=== PATIENT | female | born 1970 | race Caucasian/White ===

== ENCOUNTER 2017-07-05 21:34 | Emergency (ER) | payer SELFPAY ==
[2017-07-05] MEDS ORDERED: ACETAMINOPHEN 500 MG TAB ONE (22:48)
[2017-07-05] MEDS ORDERED: ALBUTEROL 2.5 MG/3 ML NEB SOL ONE (22:48)
[2017-07-05] MEDS ORDERED: predniSONE 20 MG TAB ONE (22:48)
[2017-07-05] MEDS ORDERED: IPRATROPIUM BROM 0.5MG/2.5ML ONE (22:48)
--- NOTE | 2017-07-06 00:28 | EDPHYS ---
Physician Documentation [facility] Name: Leyla Dutton Age: 46 yrs Sex: Female : 1970 Arrival Date: 07/05/2017 Time: 21:37 Bed 6 Private MD: ED Physician Arsenio Marquez HPI: 07/06 00:00 This 46 yrs old Female presents to ER via Ambulatory with complaints of pm1 Productive Cough - blood. 00:00 The patient or guardian reports cough, with productive sputum, yellow with some streaks pm1 of small blood today. Onset: The symptoms/episode began/occurred 4 day(s) ago. Severity of symptoms: in the emergency department the symptoms are actually worse. Modifying factors: The symptoms are alleviated by nothing, the symptoms are aggravated by nothing. The patient has experienced similar episodes in the past, several times, and the symptoms today are exactly the same, to previous bronchitis. The patient has not recently seen a physician. Patient with bilateral ear pressure and sinus congestion and pain. 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: 07/05 21:47 LMP 07/05/2017 bb Historical: - Allergies: 21:47 Bactrim (rash); bb 21:47 Codeine (High Blood Pressure); bb 21:47 Erythromycin (rash); bb 21:47 Keflex (rash); bb 21:47 Lortab (rash); bb 21:47 Morphine (High Blood Pressure); bb 21:47 PENICILLINS (Hives); bb - Home Meds: 21:47 Cymbalta Oral [Active]; lisinopril 10 mg Oral tab 1 tab once daily [Active]; omeprazole bb 40 mg Oral cpDR 1 cap once daily [Active]; Symbicort inhalation inhalation [Active]; Albuterol Inhl [Active]; - PMHx: 21:47 Anxiety; Arthritis; Asthma; Depression; Hypertension; bb - PSHx: 21:47 Knee surgery; right wrist repair; bb - Immunization history:: Adult Immunizations unknown, Flu vaccine is not up to date. - Social history:: Smoking status: Patient/guardian denies using tobacco, Patient uses alcohol, but reports only rare drinking. Patient/guardian denies using street drugs. ROS: 07/06 00:00 Constitutional: Negative for fever, chills, and weight loss, Eyes: Negative for injury, pm1 pain, redness, and discharge, ENT: Negative for injury, pain, and discharge, Neck: Negative for injury, pain, and swelling, Cardiovascular: Negative for chest pain, palpitations, and edema, Abdomen/GI: Negative for abdominal pain, nausea, vomiting, diarrhea, and constipation, Back: Negative for injury and pain. : Negative for injury, bleeding, discharge, and swelling, MS/Extremity: Negative for injury and deformity, Skin: Negative for injury, rash, and discoloration, Neuro: Negative for headache, weakness, numbness, tingling, and seizure. Respiratory: Positive for cough, shortness of breath, Negative for shortness of breath, wheezing. Exam: 00:00 Constitutional: This is a well developed, well nourished patient who is awake, alert, pm1 and in no acute distress. Eyes: Pupils equal round and reactive to light, extra-ocular motions intact. Lids and lashes normal. Conjunctiva and sclera are non-icteric and not injected. Cornea within normal limits. Periorbital areas with no swelling, redness, or edema. 00:00 ENT: Nares patent. No nasal discharge, no septal abnormalities noted. Tympanic membranes are normal and external auditory canals are clear. Oropharynx with no redness, swelling, or masses, exudates, or evidence of obstruction, uvula midline. Mucous membranes moist. Neck: Trachea midline, no thyromegaly or masses palpated, and no cervical lymphadenopathy. Supple, full range of motion without nuchal rigidity, or vertebral point tenderness. No Meningismus. Chest/axilla: Normal chest wall appearance and motion. Nontender with no deformity. No lesions are appreciated. Cardiovascular: Regular rate and rhythm with a normal S1 and S2. No gallops, murmurs, or rubs. Normal PMI, no JVD. No pulse deficits. 00:00 Abdomen/GI: Soft, non-tender, with normal bowel sounds. No distension or tympany. No guarding or rebound. No evidence of tenderness throughout. Back: No spinal tenderness. No costovertebral tenderness. Full range of motion. Skin: Warm, dry with normal turgor. Normal color with no rashes, no lesions, and no evidence of cellulitis. MS/ Extremity: Pulses equal, no cyanosis. Neurovascular intact. Full, normal range of motion. Neuro: Awake and alert, GCS 15, oriented to person, place, time, and situation. Cranial nerves II-XII grossly intact. Motor strength 5/5 in all extremities. Sensory grossly intact. Cerebellar exam normal. Normal gait. 00:00 Head/face: Sinus tenderness, that is moderate, is located over the right frontal sinus and left frontal sinus. 00:00 Respiratory: the patient does not display signs of respiratory distress, Respirations: normal, Breath sounds: wheezing: expiratory that is mild. Vital Signs: 07/05 21:47 BP 160 / 82; Pulse 136; Resp 20 S; Temp 101.5(O); Pulse Ox 95% on R/A; Weight 140.61 kg bb (R); Height 5 ft. 8 in. (172.72 cm) (R); Pain 2/10; 22:30 BP 135 / 107; Pulse 111; Resp 20; Pulse Ox 97% on R/A; lp1 23:00 BP 130 / 75; Pulse 113; Resp 20; Pulse Ox 96% on R/A; lp1 23:45 BP 131 / 72; Pulse 117; Resp 19; Pulse Ox 100% on R/A; lp1 07/06 00:30 BP 135 / 71; Pulse 118; Resp 20; Temp 100(O); Pulse Ox 97% on R/A; lp1 07/05 21:47 Body Mass Index 47.13 (140.61 kg, 172.72 cm) 07/05 21:47 chronic back pain MDM: 22:02 Patient medically screened. pm1 07/06 00:26 Data reviewed: vital signs. Data interpreted: Pulse oximetry: on room air is 97 %. pm1 Interpretation: normal. Counseling: I had a detailed discussion with the patient and/or guardian regarding: the historical points, exam findings, and any diagnostic results supporting the discharge/admit diagnosis, radiology results, the need for outpatient follow up, to return to the emergency department if symptoms worsen or persist or if there are any questions or concerns that arise at home. 07/05 22:08 Order name: Chest Pa And Lat (2 Views) XRAY; Complete Time: 15:06 pm1 Administered Medications: 07/05 22:50 Drug: Tylenol 1000 mg Route: PO; lp1 07/06 01:00 Follow up: Response: Temperature is decreased [facility] 07/05 22:50 Drug: Albuterol - atroVENT (3:1) (2.5 mg - 0.5 mg) 3 ml Route: Nebulizer; 1 07/06 01:00 Follow up: Response: No adverse reaction lp1 07/05 22:50 Drug: predniSONE 60 mg Route: PO; lp1 07/06 01:00 Follow up: Response: No adverse reaction 1 Disposition: 03:06 Co-signature as Attending Physician, Arsenio Marquez MD. Disposition: 07/06/17 00:27 Discharged to Home. Impression: Acute sinusitis, Unspecified asthma with (acute) exacerbation. - Condition is Stable. - Discharge Instructions: Asthma, Adult, Sinusitis, Adult. - Prescriptions for Levaquin 500 mg Oral Tablet - take 1 tablet by ORAL route once daily for 7 days; 7 tablet. Prednisone 20 mg Oral Tablet - take 1 tablet by ORAL route every 12 hours for 5 days; 10 tablet. - Work release form, Medication Reconciliation Form, Thank You Letter, Antibiotic Education form. - Follow up: Emergency Department; When: As needed; Reason: Worsening of condition. Follow up: Private Physician; When: 2 - 3 days; Reason: Recheck today's complaints, Continuance of care, Re-evaluation by your physician. - Problem is new. - Symptoms have improved. Signatures: Dispatcher [employer] Caro Mccain RN RN Miri Frazier RN RN 1 Jose Martinez, BANKING CONSULTANT BANKING CONSULTANT 1 Arsenio Marquez MD MD Corrections: (The following items were deleted from the chart) 00:37 07/05 22:08 Urine Dipstick-Ancillary ordered. pm1 1 07/06 00:37 07/05 22:08 Urine Test ordered. pm1 1
--- NOTE | 2017-07-06 00:28 | ER ---
Nurse's Notes [facility] Name: Leyla Dutton Age: 46 yrs Sex: Female : 1970 Arrival Date: 07/05/2017 Time: 21:37 Bed 6 Private MD: Diagnosis: Unspecified asthma with (acute) exacerbation;Acute sinusitis Presentation: 07/05 21:42 Presenting complaint: Patient states: she started coughing on Monday and in general bb is feeling really bad today she coughed so hard she threw up and it was blood tinged, pt took advil today at 1645. Transition of care: patient was not received from another setting of care. Onset of symptoms was July 01, 2017. Initial Sepsis Screen: Does the patient meet any 2 criteria? Temp <36.0*C (96.8*F)) or > 38.3*C (100.4*F). HR > 90 bpm. Does the patient have a suspected source of infection? Yes: Productive cough/pneumonia. Care prior to arrival: None. 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:47 LMP 07/05/2017 bb Historical: - Allergies: 21:47 Bactrim (rash); bb 21:47 Codeine (High Blood Pressure); bb 21:47 Erythromycin (rash); bb 21:47 Keflex (rash); bb 21:47 Lortab (rash); bb 21:47 Morphine (High Blood Pressure); bb 21:47 PENICILLINS (Hives); bb - Home Meds: 21:47 Cymbalta Oral [Active]; lisinopril 10 mg Oral tab 1 tab once daily [Active]; omeprazole bb 40 mg Oral cpDR 1 cap once daily [Active]; Symbicort inhalation inhalation [Active]; Albuterol Inhl [Active]; - PMHx: 21:47 Anxiety; Arthritis; Asthma; Depression; Hypertension; bb - PSHx: 21:47 Knee surgery; right wrist repair; bb - Immunization history:: Adult Immunizations unknown, Flu vaccine is not up to date. - Social history:: Smoking status: Patient/guardian denies using tobacco, Patient uses alcohol, but reports only rare drinking. Patient/guardian denies using street drugs. Screenin:02 Abuse screen: Denies threats or abuse. Denies injuries from another. Nutritional lp1 screening: No deficits noted. Tuberculosis screening: No symptoms or risk factors identified. Fall Risk None identified. Assessment: 22:15 General: Appears ill, Behavior is calm, cooperative, appropriate for age. Pain: lp1 Complains of pain in chest Aggravated by Coughing. Neuro: Level of Consciousness is awake, alert, obeys commands, Oriented to person, place, time, situation. Cardiovascular: Capillary refill < 3 seconds in bilateral fingers toes. Respiratory: Reports shortness of breath on exertion cough that is persistent pain with cough Airway is patent Trachea midline Respiratory effort is even, Respiratory pattern is regular, Breath sounds are diminished bilaterally. Onset: The symptoms/episode began/occurred gradually, the patient has mild shortness of breath. GI: Abdomen is obese. : No deficits noted. EENT: No deficits noted. Derm: Skin is intact, Skin is moist, Skin is flushed. Musculoskeletal: Circulation, motion, and sensation intact. 23:30 Reassessment: Patient appears in no apparent distress at this time. Patient and/or lp1 family updated on plan of care and expected duration. Pain level reassessed. Patient is alert, oriented x 3, equal unlabored respirations, skin warm/dry/pink. Patient states continued cough. 07/06 00:30 Reassessment: Patient noted to be diaphoretic, states "I think my fever is breaking" lp1 Patient states symptoms have improved. Vital Signs: 07/05 21:47 BP 160 / 82; Pulse 136; Resp 20 S; Temp 101.5(O); Pulse Ox 95% on R/A; Weight 140.61 kg bb (R); Height 5 ft. 8 in. (172.72 cm) (R); Pain 2/10; 22:30 BP 135 / 107; Pulse 111; Resp 20; Pulse Ox 97% on R/A; lp1 23:00 BP 130 / 75; Pulse 113; Resp 20; Pulse Ox 96% on R/A; lp1 23:45 BP 131 / 72; Pulse 117; Resp 19; Pulse Ox 100% on R/A; lp1 07/06 00:30 BP 135 / 71; Pulse 118; Resp 20; Temp 100(O); Pulse Ox 97% on R/A; lp1 04/18 21:47 Body Mass Index 47.13 (140.61 kg, 172.72 cm) bb 07/05 21:47 chronic back pain bb ED Course: 21:37 Patient arrived in ED. am2 21:45 Triage completed. bb 21:47 Arm band placed on right wrist. Patient placed in an exam room, on a stretcher, on bb pulse oximetry. 21:55 Jose Martinez NP is PHCP. pm1 21:55 Arsenio Marquez MD is Attending Physician. pm1 22:33 Patient moved to radiology via wheelchair. ag1 22:36 X-ray completed. Patient tolerated procedure well. ag1 22:36 Patient moved back from radiology. ag1 22:36 Chest Pa And Lat (2 Views) XRAY In Process Unspecified. EDMS 22:39 Miri Frazier RN is Primary Nurse. lp1 22:45 Patient has correct armband on for positive identification. Placed in gown. Pulse ox lp1 on. NIBP on. 07/06 00:59 No provider procedures requiring assistance completed. Patient did not have IV access lp1 during this emergency room visit. Administered Medications: 07/05 22:50 Drug: Tylenol 1000 mg Route: PO; 1 07/06 01:00 Follow up: Response: Temperature is decreased [facility] 07/05 22:50 Drug: Albuterol - atroVENT (3:1) (2.5 mg - 0.5 mg) 3 ml Route: Nebulizer; 1 07/06 01:00 Follow up: Response: No adverse reaction [facility] 07/05 22:50 Drug: predniSONE 60 mg Route: PO; [facility] 07/06 01:00 Follow up: Response: No adverse reaction [facility] Outcome: 00:27 Discharge ordered by . pm1 00:59 Discharged to home ambulatory, with significant other. lp1 00:59 Condition: good 00:59 Discharge instructions given to patient, Instructed on discharge instructions, follow up and referral plans. medication usage, Demonstrated understanding of instructions, follow-up care, medications, Prescriptions given X 2. 01:00 Patient left the ED. lp1 Signatures: Dispatcher [employer] EDMS Caro Gooden RN RN bb Miri Frazier RN RN lp1 Prema Osei ag1 Jose Martinez NP WEBFOCUS DEVELOPER pm1 Benitez, Molly am2
[2017-07-06 01:16] VITALS: BP 135/71; TEMP 100; O2SAT 97
--- NOTE | 2017-07-06 07:53 | RAD REPORT ---
EXAM DESCRIPTION: Anjali Bates (2 Views)07/05/2017 10:39 pm CLINICAL HISTORY: Cough COMPARISON: 2016 FINDINGS: The lungs appear clear of acute infiltrate. The heart is normal size IMPRESSION: No acute abnormalities displayed
== END 2017-07-06 01:00 | disposition home or self-care (01) ==
LOC: ER 21:34
DX: J45.901 Unspecified asthma with (acute) exacerbation (principal); J01.90 Acute sinusitis, unspecified; I10 Essential (primary) hypertension; F41.9 Anxiety disorder, unspecified; F32.9 Major depressive disorder, single episode, unspecified; Z88.0 Allergy status to penicillin; Z88.1 Allergy status to other antibiotic agents; Z88.3 Allergy status to other anti-infective agents; Z88.5 Allergy status to narcotic agent; Z88.8 Allergy status to other drugs, medicaments and biological substances
CPT/HCPCS: 71046; 94640; 99284; J7512

== ENCOUNTER 2018-07-14 09:10 | Emergency (ER) | payer SELFPAY ==
--- OUTSIDE RECORDS SUMMARY | 2018-07-14 09:14 | XMS REPORT | Continuity of Care Document ---
:1970 Author Organization Interface Problems Problem Status Onset Classification Date Comments Source Date Reported 28038, M17.12 Active 05/03/19 OSTEOARTHRITIS 17 [facility] LEFT KNEE City LEFT KNEE PAIN Active 03/20/19 01 [facility] 719.46 RIGHT KNEE Active 03/20/19 MH 01 [facility] Bronchitis Resolved Problem 06/09/2016 [facility] Osteoarthritis of Active Problem 06/09/2016 left knee MH knee<sup>1</sup> [facility] Acid reflux Active Problem 06/09/2016 [facility] Asthma Active Problem 06/09/2016 [facility] Hypertension Active Problem 06/09/2016 [facility] Ligament Resolved Problem 06/09/2016 right wrist MH tear<sup>2</sup> [facility] Anxiety and Active Problem 06/09/2016 depression [facility] Motion sickness Active Problem 06/09/2016 [facility] Tendonitis, Resolved Problem 06/09/2016 left knee MH patellar<sup>3</s [facility], Active UNSPECIFIED [facility] Medications Medication Details Route Status Patient Ordering Order Source Instructions Provider Date Ketorolac 10 mg=1 tab, Active Tromethamine 10 MG PO, Q8H, PRN 2017 [facility] Oral Tablet Pain Score [facility] 6-10, X 5 day, # 15 tab, 0 Refill(s), given to patient Aspirin 325 MG 325 mg=1 tab, Active Enteric Coated PO, Q12H, Take 2017 [facility] Tablet one tab at 8AM [facility] and 8PM with food, 0 Refill(s) Acetaminophen 325 1 to 2 tabs, Active MG / Oxycodone PO, Q4H, PRN as 2017 [facility] Hydrochloride 10 needed for City MG Oral Tablet pain, # 90 tab, [Percocet 10/325] 0 Refill(s), given to patient Furosemide 20 MG 20 mg, 1 tab, Inactive Oral Tablet Route: PO, Drug 2016 [facility] [Lasix] form: TAB, City ONCE, Dosing Weight 135.455, kg, Start date: 05/27/16 8:15:00 [employer], Stop date: 05/27/16 8:15:00 CSTNotes: (Same as: Lasix) May cause GI upset. Give with food or milk. BD Normal Saline 10 mL, Route: No Longer Flush IV, Drug Form: Active Jaime [facility] INJ, PRN, PRN [place] Flush, Start date: 05/26/16 15:45:00 O[employer] WORK SPECIALIST, Duration: 30 day, Stop date: 06/25/16 16:44:00 CDTNotes: (Same as: BD Posiflush) Sodium Chloride 25 mL, Route: No Longer 0.9% IV IV, Start date: Active 2016 [facility] 05/26/16 [facility] 15:45:00 O[employer]IST, Duration: 30 day, Stop date: 06/25/16 16:44:00 CDT, PRN Line Flush Acetaminophen 325 2 tab, Route: No Longer MG / Oxycodone PO, Drug Form: Active 2016 [facility] Hydrochloride 10 TAB, Dosing City MG Oral Tablet Weight 135.455, [Percocet 10/325] kg, Q4H, PRN Pain Score 7-10, Start date: 05/26/16 15:36:00 O[employer]IST, Duration: 30 day, Stop date: 06/25/16 15:35:00 CDT Dilaudid 4 mg, 1 tab, Inactive Route: PO, Drug 2016 [facility] form: TAB, Q4H, [facility] Dosing Weight 135.455, kg, PRN Pain Score 7-10, Start date: 05/26/16 13:48:00 O[employer]IST, Duration: 30 day, Stop date: 06/25/16 13:47:00 CDTNotes: (Same as: Dilaudid) Dilaudid 2 mg, 1 tab, Inactive Route: PO, Drug 2016 [facility] form: TAB, Q4H, [facility] Dosing Weight 135.455, kg, PRN Pain Score 1-5, Start date: 05/26/16 13:16:00 O[employer]IST, Stop date: 06/25/16 13:15:00 CDTNotes: (Same as: Dilaudid) Sodium Chloride 500 mL, 500 Inactive 0.154 MEQ/ML ml/hr, Infuse 2017 [facility] Injectable Over: 1 hr, [facility] Solution Route: IV, 500, Drug form: INJ, ONCE, Priority: STAT, Dosing Weight 135.455 kg, Start date: 05/26/16 12:54:00 O[employer]IST, Duration: 1 doses or times, Stop date: 05/26/16 12:54:00 O[employer] WORK SPECIALIST Tylenol 500 mg, 1 tab, No Longer Route: PO, Drug Active [address] [place] [address] form: TAB, Q6H, [facility] Dosing Weight 135.455, kg, Start date: 05/26/16 12:00:00 O[employer]IST, Duration: 30 day, Stop date: 06/25/16 6:00:00 CDT Advil 600 mg, 1 tab, No Longer Route: PO, Drug Active [address] [place] [address] form: TAB, Q8H, [facility] Dosing Weight 135.455, kg, Start date: 05/26/16 9:30:00 O[employer]IST, Duration: 30 day, Stop date: 06/25/16 8:00:00 CDT cyclobenzaprine 10 mg, 1 tab, No Longer Route: PO, Drug Active [address] [place] [address] form: TAB, BID, [facility] Dosing Weight 135.455, kg, Start date: 05/26/16 9:00:00 O[employer] WORK [employer]IST, Duration: 30 day, Stop date: 06/24/16 17:00:00 CDTNotes: (Same As: Flexeril) Vancomycin 2,000 mg, 500 Inactive mL, Route: [address] [place] [address] IVPB, Drug [facility] form: SOLN, Q24H, Dosing Weight 135, kg, Time Critical Medication, Start date: 05/26/16 6:00:00 [employer]IST, Duration: 1 doses or times, Stop date: 05/26/16 6:00:00 [employer]IST, Pharmacy to adjust dose for renal functionNotes: TIME CRITICAL MEDICATION Same as: Vancocin Infusion rate 2001 mg: infuse over 2.5 hours albuterol 2.49 mg, 3 mL, No Longer Route: NEB, Active [address] [place] [address] Drug form: City SOLN, RQID, PRN Shortness of breath, Start date: 05/25/16 22:04:00 O[employer]IST, Duration: 30 day, Stop date: 06/24/16 22:03:00 CDTNotes: SEE RT DOCUMENTATION (Same as: Proventil) Protonix 40 mg, 1 tab, No Longer Route: PO, Drug Active 2016 [facility] form: ECTAB, City Before Dinner, Start date: 05/25/16 21:16:00 O[employer]IST, Duration: 30 day, Stop date: 06/24/16 16:30:00 CDTNotes: Tablet should not be chewed or crushed. (Same as: Protonix) Omeprazole 40 mg, Route: Inactive PO, Drug form: 2016 [facility], Bedtime, [facility] Dosing Weight 135.455, kg, Start date: 05/25/16 21:00:00 O[employer] WORK [employer]IST, Duration: 30 day, Stop date: 06/23/16 21:00:00 CDT montelukast 10 mg, 1 tab, No Longer Route: PO, Drug Active 2016 [facility] form: TAB, [facility] Bedtime, Dosing Weight 135.455, kg, Start date: 05/25/16 21:00:00 O[employer] WORK [employer]IST, Duration: 30 day, Stop date: 06/23/16 21:00:00 CDTNotes: (Same as:Singulair) duloxetine 60 mg, 2 cap, No Longer Route: PO, Drug Active 2016 [facility] form: DRC, [facility] Bedtime, Dosing Weight 135.455, kg, Start date: 05/25/16 21:00:00 O[employer]IST, Duration: 30 day, Stop date: 06/23/16 21:00:00 CDTNotes: (Same as: Cymbalta) (Do Not Crush) 200 ACTUAT 180 microgram, Inactive Albuterol 0.09 2 puff, Route: 2016 [facility] MG/ACTUAT Metered INHALATION, [facility] Dose Inhaler Drug Form: [ProAir HFA] AERO/A, Dosing Weight 135.455, kg, QID, PRN Wheezing, Start date: 05/25/16 17:12:00 O[employer]IST, Duration: 30 day, Stop date: 06/24/16 17:11:00 CDT Docusate Sodium 100 mg, 1 cap, No Longer 100 MG Oral Route: PO, Drug Active 2016 [facility] Capsule [Colace] form: CAP, BID, [facility] Dosing Weight 135, kg, Start date: 05/25/16 17:00:00 O[employer]IST, Duration: 30 day, Stop date: 06/24/16 9:00:00 CDT Aspirin 325 mg, 1 tab, No Longer Route: PO, Drug Active 2016 [facility] form: ECTAB, City Q12H, Dosing Weight 135, kg, For patients with risk of bleeding, Start date: 05/25/16 15:00:00 O[employer]IST, Duration: 30 day, Stop date: 06/24/16 9:00:00 CDTNotes: (Do Not Crush) Do not crush or chew. Ketorolac 15 mg, 0.5 mL, No Longer Route: IV, Drug Active 2016 [facility] form: INJ, Q6H, [facility] Dosing Weight 135, kg, Start date: 05/25/16 12:00:00 O[employer] WORK [employer]IST, Duration: 4 doses or times, Stop date: 05/26/16 6:00:00 CSTNotes: (Same as:Toradol) IV bolus must be given >15 seconds. Give IM administration slowly and deeply into the muscle. Not for use > 4 days MEDICATION WASTE Product Size: 30 mg Product Wasted: ___ mg Vancomycin 2,000 mg, Inactive Route: [id number] Drug form: INJ, City Q24H, Dosing Weight 135, kg, Time Critical Medication, Start date: 05/25/16 11:00:00 O[employer] WORK [employer]IST, Duration: 1 doses or times, Stop date: 05/25/16 11:00:00 O[employer] WORK [employer]IST, Pharmacy to adjust dose for renal function Dilaudid 1 mg, 0.5 mL, No Longer Route: IM, Drug Active 2016 [facility] form: INJ, Q4H, [facility] Dosing Weight 135, kg, PRN Pain Score 7-10, Start date: 05/25/16 10:49:00 O[employer] WORK [employer]IST, Duration: 30 day, Stop date: 06/24/16 10:48:00 CDTNotes: Same as Dilaudid Phenergan 6.25 mg, 0.25 No Longer mL, Route: Active 2016 [facility] IVPB, Q6H, [facility] Dosing Weight 135, kg, PRN Nausea & Vomiting, Start date: 05/25/16 10:45:00 O[employer]IST, Duration: 30 day, Stop date: 06/24/16 10:44:00 CDTNotes: Do not give IV push. (Same as: Phenergan) Benadryl 25 mg, 1 cap, No Longer Route: PO, Drug Active 2016 [facility] form: CAP, TID, [facility] Dosing Weight 135, kg, PRN Itching, Start date: 05/25/16 10:45:00 O[employer] WORK [employer]IST, Duration: 30 day, Stop date: 06/24/16 10:44:00 CDTNotes: (Same as: Benadryl) Zofran 4 mg, 2 mL, No Longer Route: IV, Drug Active 2016 [facility] form: INJ, Q8H, [facility] Dosing Weight 135, kg, PRN Nausea, Start date: 05/25/16 10:45:00 O[employer] WORK SPECIALIST, Duration: 30 day, Stop date: 06/24/16 10:44:00 CDTNotes: (Same as: Zofran) MEDICATION WASTE Product Size: 4 mg Product Wasted: ___ mg Acetaminophen 325 2 tab, Route: No Longer MG / Oxycodone PO, Drug Form: Active 2016 [facility] Hydrochloride 10 TAB, Dosing [place] MG Oral Tablet Weight 135, kg, [Percocet 10/325] Q4H, PRN Pain Score 7-10, Start date: 05/25/16 10:45:00 O[employer]IST, Duration: 30 day, Stop date: 06/24/16 10:44:00 CDT Maalox Advanced 30 mL, Route: No Longer Regular Strength PO, Drug Form: Active 2016 [facility] SUSP SUSP, Dosing [facility] Weight 135, kg, QID, PRN Heartburn, Start date: 05/25/16 10:45:00 O[employer]IST, Duration: 30 day, Stop date: 06/24/16 10:44:00 CDT Ambien 5 mg, 1 tab, No Longer Route: PO, Drug Active 2016 [facility] form: TAB, City Bedtime, Dosing Weight 135, kg, PRN Insomnia, Start date: 05/25/16 10:45:00 O[employer]IST, Duration: 30 day, Stop date: 06/24/16 10:44:00 CDTNotes: (Same As: Ambien) D5NS 1,000 mL 1,000 mL, Rate: No Longer 100 ml/hr, Active 2016 [facility] Infuse over: 10 City hr, Route: IV, Dosing Weight 135 kg, Total Volume: 1,000, Start date: 05/25/16 10:45:00 O[employer]IST, Duration: 30 day, Stop date: 06/24/16 10:44:00 CDT acetaminophen Route: IV, Drug Inactive 05/25/ MH (ANES) form: INJ, 2016 [facility] , date: 05/25/16 10:40:00 O[employer]IST dexamethasone Route: IV, Drug Inactive 05/25/ MH (ANES) form: INJ, 2016 [facility] ONCE, date: 05/25/16 10:34:00 O[employer] WORK [employer]IST morphine Sulfate Route: IV, Drug Inactive 05/25/ MH (ANES) form: SOLN 2016 [facility] , date: 05/25/16 10:29:00 O[employer]IST tranexamic acid Route: IV, Drug Inactive 05/25/ MH (ANES) form: INJ, 2016 [facility] ONCE, date: 05/25/16 9:49:00 O[employer]IST phenylephrine Route: IV, Drug Inactive 05/25/ MH (ANES) form: INJ, 2016 [facility] ONCE, date: 05/25/16 9:39:00 O[employer] WORK SPECIALIST ePHEDrine (ANES) Route: IV, Drug Inactive 05/25/ MH form: INJ, 2016 [facility] , date: 05/25/16 9:39:00 O[employer] WORK SPECIALIST bupivacaine (ANES) Route: IV, Drug Inactive 05/25/ MH Form: INJ, 2016 [facility] , date: 05/25/16 9:34:00 O[employer] SPECIALIST morphine Sulfate Route: IV, Drug Inactive 05/25/ MH (ANES) form: N 2016 [facility] date: 05/25/16 9:34:00 O[employer] WORK [employer]IST Ondansetron 4 mg, 2 mL, No Longer Route: IVP, Active 2016 [facility] Drug form: INJ, , Dosing Weight 135, kg, PRN Nausea & Vomiting, Start date: 05/25/16 9:21:00 CSTNotes: (Same as: Zofran) MEDICATION WASTE Product Size: 4 mg Product Wasted: ___ mg Flumazenil 0.2 mg, 2 mL, No Longer Route: IVP, Active 2016 [facility] Drug form: INJ, City PRN, Dosing Weight 135, kg, PRN Benzodiazepine Reversal, Initial dose, Start date: 05/25/16 9:21:00 O[employer] WORK [employer]IST, Duration: 30 day, Stop date: 06/24/16 10:20:00 CDTNotes: (Same as: Romazicon) Hydromorphone 0.2 mg, 0.1 mL, No Longer Route: IVP, Active 2016 [facility] Drug form: INJ, City Q5Min, Dosing Weight 135, kg, PRN Pain Score 7-10, Start date: 05/25/16 9:21:00 O[employer] WORK [employer]IST, Duration: 4 doses or times, Stop date: Limited # of timesNotes: Same as Dilaudid Naloxone 0.4 mg, 1 mL, No Longer Route: IVP, 2016 [facility] Drug form: INJ, City Q2MIN, Dosing Weight 135, kg, PRN Narcotic Reversal, Start date: 05/25/16 9:21:00 O[employer] WORK SPECIALIST, Duration: 8 doses or times, Stop date: Limited # of timesNotes: Same as Narcan midazolam (ANES) Route: IV, Drug Inactive form: SOLN, 2016 [facility] date: 05/25/16 9:19:00 O[employer] WORK SPECIALIST ondansetron (ANES) Route: IV, Drug Inactive form: INJ, 2016 [facility] , [facility] date: 05/25/16 9:19:00 OLD[employer]ULT [employer] WORK SPECIALIST fentaNYL (ANES) Route: IV, Drug Inactive form: INJ, 2016 [facility] , Stop [facility] date: 05/25/16 9:19:00 O[employer] WORK [employer]IST Naloxone 0.1 mg, 0.25 No Longer mL, Route: IVP, Active 2016 [facility] Drug form: INJ, City Q2MIN, Dosing Weight 135, kg, PRN Narcotic Reversal, Start date: 05/25/16 9:17:00 O[employer] WORK SPECIALIST, Duration: 8 doses or times, Stop date: Limited # of timesNotes: Same as Narcan propofol (ANES) Route: IV, Drug Inactive 05/25/ MH (ANES) form: INJ, 2016 [facility] Start date: [facility] 05/25/16 9:05:00 O[employer] WORK SPECIALIST, Stop date: 05/25/16 10:05:00 O[employer] WORK SPECIALIST vancomycin (ANES) Route: IV, Drug Inactive (ANES) form: INJ, 2016 [facility] Start date: [facility] 05/25/16 8:43:00 O[employer] WORK SPECIALIST, Stop date: 05/25/16 9:43:00 OLD[employer]ULT [employer] WORK SPECIALIST LR 1000 mL INJ Route: IV, Inactive (ANES) Total Volume: 2016 [facility] 1,000, Start City date: 05/25/16 8:37:00 O[employer] WORK SPECIALIST, Stop date: 05/25/16 9:37:00 OLD[employer]ULT [employer] WORK SPECIALIST 72 HR Scopolamine 1 patch, Route: Inactive 0.0139 MG/HR TOP, Drug Form: 2016 [facility] Transdermal Patch ERFILM, Dosing [facility] Weight 135, kg, PRE OP, Start date: 05/25/16 8:00:00 O[employer] WORK SPECIALIST, Duration: 30 day, Stop date: 06/24/16 8:59:00 CDT Cyklokapron + 1,000 mg, 10 Inactive sodium chloride mL, Route: 2016 [facility] 0.9% [facility] date: 05/25/16 0:00:00 OLD[employer]ULT [employer] WORK SPECIALIST, Duration: 2 doses or timesNotes: (Same As: Cyklokapron) Ofirmev 1,000 mg, 100 Inactive mL, Route: IV, 2016 [facility]: 05/25/16 0:00:00 OLD[employer]ULT [employer] WORK SPECIALIST, Duration: 20 hr, Stop date: 05/25/16 19:59:00 CSTNotes: Infuse over 15 minutes Do not exceed 4gm/day of acetaminophen MEDICATION WASTE Product Size: 1000 mg Product Wasted: ___ mg Reglan 10 mg, 1 tab, Inactive Route: PO, Drug 2016 [facility] form: TAB, [facility], Start date: 05/25/16 0:00:00 OLD[employer] WORK SPECIALIST, Duration: 20 hr, Stop date: 05/25/16 19:59:00 CSTNotes: (Same as: Reglan) Take 30 min before meals Cleocin Phosphate 900 mg, 6 mL, No Longer + sodium chloride Route: IVPB, Active 2016 [facility] 0.9% INJ 50 mL ONCALL, Start [facility] date: 05/25/16 0:00:00 O[employer] WORK SPECIALIST, Duration: 20 hr, Stop date: 05/25/16 19:59:00 CSTNotes: (Same As: Cleocin) famotidine 20 mg, 1 tab, Inactive Route: PO, Drug 2016 [facility] form: TAB, Alicja ONCALL, Start date: 05/25/16 0:00:00 O[employer] WORK SPECIALIST, Duration: 20 hr, Stop date: 05/25/16 19:59:00 CSTNotes: (Same as: Pepcid) vancomycin + 2,000 mg, Inactive sodium chloride Route: IVPB, 2016 [facility] 0.9% 500 mL INJ [facility] (for IV set) 500 date: 05/25/16 mL 0:00:00 O[employer]ULT [employer] WORK SPECIALIST, Duration: 20 hr, Stop date: 05/25/16 19:59:00 CSTNotes: TIME CRITICAL MEDICATION (Same As: Vancocin) Infusion rate 2001 mg: infuse over 2.5 hours MEDICATION WASTE Product Size: 1000 mg Product Wasted: ___ mg 200 ACTUAT 2 puff, Active Albuterol 0.09 INHALATION, 2016 [facility] MG/ACTUAT Metered QID, PRN as [facility] Dose Inhaler needed for [ProAir HFA] wheezing, 0 Refill(s) Hydrochlorothiazid 25 mg=1 tab, Active e 25 MG Oral PO, Daily, PRN 2016 [facility] Tablet Hypertension, 0 [facility] Refill(s) lisinopril 10 mg 10 mg=1 tab, Active oral tablet PO, Bedtime, 0 2016 [facility] Refill(s) [facility] DULoxetine 60 mg 60 mg=1 cap, Active oral delayed PO, Bedtime, 0 2016 [facility] release capsule Refill(s) [facility] montelukast 10 mg 10 mg=1 tab, Active oral tablet PO, Bedtime, 0 2016 [facility] Refill(s) [facility] cyclobenzaprine 10 10 mg=1 tab, Active mg oral tablet PO, BID, 0 2016 [facility] Refill(s) [facility] tramadol 50 mg=1 tab, Active hydrochloride 50 PO, Q4H, PRN 2016 [facility] MG Oral Tablet Pain Score [facility] 6-10, 0 Refill(s) omeprazole 40 mg 40 mg=1 cap, Active oral delayed PO, Bedtime, 0 2016 [facility] release capsule Refill(s) [facility] indomethacin 75 mg 75 mg=1 cap, No Longer oral capsule, PO, Bedtime, 0 Active 2016 [facility] extended release Refill(s) [facility] Allergies, Adverse Reactions, Alerts Substance Category Reaction Severity Reaction Status Date Comments Source type Reported Bactrim Assertion Drug Active [facility] codeine Assertion Drug Active [facility] Latex Assertion Drug Active [facility] Lortab Assertion Drug Active [facility] morphine Assertion Drug Active [facility] penicillins Assertion Drug Active [facility] Tape Assertion Drug Active [facility] Immunizations Immunization Date Given Site Status Last Updated Comments Source Results Order Name Results Value Reference Date Interpretation Comments Source Range Knee 1-2 Knee 1-2 CLINICAL HISTORY: Pain 06/06 - Views - [facility] unilateral unilateral AGE: 45 years [facility] DX DX GENDER: Female Read by: Andreas Monterroso MD Dictated Date/time: 06/06/16 12:58 Electronically Signed by: Andreas Monterroso MD 06/06/16 13:01 FINAL REPORT TECHNIQUE: Left knee radiographs, 2 views. COMPARISON: Left knee radiographs 03/25/2016 FINDINGS: Postoperative changes from left total knee arthroplasty are noted. There is no evidence of fracture or malalignment. Expected soft tissue swelling is seen about the knee. Surgical cha are seen in the anterior midline soft tissues. An orthopedic bracket is seen on the anterior tibia. IMPRESSION: Postoperative changes from left total knee arthroplasty without evidence of complication. HEMATOLOGY Monocytes # 1.2 K/CMM 0.0 - 0.8 05/27 [facility] HEMATOLOGY Segs-Bands # 8.5 K/CMM 1.5 - 8.1 05/27 [facility] HEMATOLOGY Basophils # 0.1 K/CMM 0.0 - 0.2 05/27 [facility] HEMATOLOGY Eosinophils 0.9 K/CMM 0.0 - 0.5 05/27 [facility] HEMATOLOGY Lymphocytes 2.1 K/CMM 1.0 - 5.5 05/27 [facility] HEMATOLOGY Monocytes 9.5 % 2.0 - 12.0 [facility] HEMATOLOGY Segs 66.5 % 45.0 - 05/27 MH 75.0 [facility] HEMATOLOGY Eosinophils 6.6 % 0.0 - 4.0 05/27 [facility] HEMATOLOGY Lymphocytes 16.6 % 20.0 - 05/27 MH 40.0 [facility] HEMATOLOGY Basophils 0.8 % 0.0 - 1.0 05/27 [facility] HEMATOLOGY RBC 3.75 M/CMM 4.20 - 05/27 MH 5.40 /2016 [facility] HEMATOLOGY WBC 12.8 K/CMM 3.7 - 10.4 05/27 [facility] HEMATOLOGY Hgb 10.0 g/dL 12.0 - 05/27 MH 16.0 [facility] HEMATOLOGY Hct 31.0 % 36.0 - 05/27 MH 48.0 [facility] MPV 8.0 fL 7.4 - 10.4 05/27 [facility] HEMATOLOGY MCHC 32.4 g/dL 32.0 - 05/27 36.0 [facility] MCH 26.7 pg 27.0 - 05/27 MH 31.0 [facility] HEMATOLOGY Platelet 311 K/CMM 133 - 450 05/27 [facility] HEMATOLOGY RDW 15.1 % 11.5 - 05/27 14. [facility] HEMATOLOGY MCV 82.5 fL 80.0 - 05/27 98.0 [facility] ELECTROLYTE Potassium 4.3 meq/L 3.5 - 5.1 05/26 S Lvl /2016 [facility] ELECTROLYTE Sodium Lvl 143 meq/L 135 - 145 05/26 [facility] ELECTROLYTE Calcium Lvl 8.2 mg/dL 8.5 - 10.5 05/26 S [facility] ELECTROLYTE Chloride Lvl 111 meq/L 95 - 109 05/26 [facility] ELECTROLYTE eGFR 105 05/26 Result Comment: The eGFR is calculated using the CKD-EPI formula. In most young, healthy individuals the eGFR will be > 90 mL/min/1.73m2. The eGFR declines with age. An eGFR of 60-89 may be normal in mL/min/1. some populations, particularly the elderly, for whom the CKD-EPI formula has not been extensively validated. Use of the eGFR is not recommended in the following populations: [address] Individuals with unstable creatinine concentrations, including patients and those with serious co-morbid conditions. Patients with extremes in muscle mass or diet. The data above are obtained from the National Kidney Disease Education Program (NKDEP) which additionally recommends that when the eGFR is used in patients with extremes of body mass index for purposes of drug dosing, the eGFR should be multiplied by the estimated BMI. ELECTROLYTE AGAP 13.3 meq/L 10.0 - 05/26 MH S 20.0 [facility] ELECTROLYTE BUN 9 mg/dL 7 - 22 05/26 [facility] ELECTROLYTE Creatinine 0.70 mg/dL 0.50 - 05/26 S Lvl 1.40 [facility] ELECTROLYTE CO2 23 meq/L 24 - 32 05/26 [facility] ELECTROLYTE Glucose Lvl 127 mg/dL 70 - 99 05/26 [facility] HEMATOLOGY Segs 79.5 % 45.0 - 05/26 MH 75.0 [facility] HEMATOLOGY Lymphocytes 12.3 % 20.0 - 05/26 MH 40.0 [facility] HEMATOLOGY Monocytes 7.2 % 2.0 - 12.0 05/26 [facility] HEMATOLOGY Segs-Bands # 13.0 K/CMM 1.5 - 8.1 05/26 [facility] HEMATOLOGY Eosinophils 0.8 % 0.0 - 4.0 05/26 [facility] HEMATOLOGY Basophils 0.2 % 0.0 - 1.0 05/26 [facility] HEMATOLOGY Lymphocytes 2.0 K/CMM 1.0 - 5.5 05/26 [facility] HEMATOLOGY Monocytes # 1.2 K/CMM 0.0 - 0.8 05/26 [facility] HEMATOLOGY Eosinophils 0.1 K/CMM 0.0 - 0.5 05/26 [facility] HEMATOLOGY WBC 16.4 K/CMM 3.7 - 10.4 05/26 [facility] HEMATOLOGY Hgb 9.6 g/dL 12.0 - 05/26 MH 16.0 [facility] HEMATOLOGY Hct 30.1 % 36.0 - 05/26 MH 48.0 [facility] HEMATOLOGY RBC 3.57 M/CMM 4.20 - 05/26 MH 5. [facility] HEMATOLOGY MPV 8.7 fL 7.4 - 10.4 05/26 [facility] HEMATOLOGY MCV 84.4 fL 80.0 - 05/26 MH 98.0 [facility] HEMATOLOGY MCH 26.9 pg 27.0 - 05/26 MH 31.0 [facility] HEMATOLOGY MCHC 31.9 g/dL 32.0 - 05/26 MH 36.0 [facility] HEMATOLOGY RDW 15.1 % 11.5 - 05/26 MH 14.5 [facility] HEMATOLOGY Platelet 320 K/CMM 133 - 450 05/26 [facility] CHEM PANEL Creatinine 0.98 mg/dL 0.50 - 05/25 Lvl 1.40 [facility] CHEM PANEL eGFR 70 05/25 Result Comment: The eGFR is calculated using the CKD-EPI formula. In most young, healthy individuals the eGFR will be >90 mL/ min/1.73m2. The eGFR declines with age. An eGFR of 60-89 may be normal in mL/min/1.7 some populations, particularly the elderly, for whom the CKD-EPI formula has not been extensively validated. Use of the eGFR is not recommended in the following populations: [address] Individuals with unstable creatinine concentrations, including patients and those with serious co-morbid conditions. Patients with extremes in muscle mass or diet. The data above are obtained from the National Kidney Disease Education Program (NKDEP) which additionally recommends that when the eGFR is used in patients with extremes of body mass index for purposes of drug dosing, the eGFR should be multiplied by the estimated BMI. HEMATOLOGY Sed Rate 15 mm/h 0 - 20 05/25 [facility] BACTERIAL - MRSA by PCR Negative 05/17 [facility] (05/17/16 10:00 AM) [facility] CHEM PANEL Glucose Lvl 135 mg/dL 70 - 99 05/17 [facility] ELECTROLYTE Sodium Lvl 138 meq/L 135 - 145 05/17 S [facility] ELECTROLYTE Potassium 3.5 meq/L 3.5 - 5.1 05/17 S Lv [facility] HEMATOLOGY Hct 35.6 % 36.0 - 05/17 MH 48.0 [facility] HEMATOLOGY Hgb 11.6 g/dL 12.0 - 05/17 MH 16.0 [facility] Knee 3 Knee 3 views EXAMINATION: Left knee series 03/25 - views DX DX /2016 - [facility] HISTORY: Left knee pain; left knee arthritis Read by: Kelvin Grace MD Dictated Date/time: 03/25/16 11:25 Electronically Signed by: Kelvin Grace MD 03/25/16 11:27 FINAL REPORT FINDINGS: 3 views of the left knee are performed and compared to 05/25/2012. There is severe lateral and mild to moderate patellofemoral compartment, bicompartmental knee osteoarthritis characterized by asymmetric joint space narrowing, subchondral sclerosis, and osteophytosis i ncluding [id number] articulation within the lateral compartment. There is genu valgus alignment. There is a small knee effusion. There is a metallic orthopedic bracket redemonstrated along the anterior proximal tibia. There is no acute fracture. IMPRESSION: 1. Severe lateral and mild to moderate patellofemoral compartment, bicompartmental left knee osteoarthritis with left genu valgus alignment and a small left knee effusion. Knee 4+ Knee 4+ EXAM: Knee 4+ views unilateral 02/03 [facility] views views /2013 [facility] unilateral HISTORY: 719.46 Pain in Joint Involving Lower Leg [facility] DX DX COMPARISON: None Read by: Chato Simmons MD Dictated Date/time: 02/03/14 13:36 Electronically Signed by: Chato Simmons MD 02/03/14 13:38 FINAL REPORT Four views of the right knee. Alignment is normal. No fracture is seen. There is no joint effusion. There is mild tibiofemoral joint space narrowing with trace marginal osteophyte formation at the medial tibiofemoral compartment. No osteochondral defect is appreciated. IMPRESSION: Mild degenerative change. Vital Signs Vital Sign Value Date Comments Source Respitory Rate 18 05/27/2016 [facility] Systolic (mm Hg) 137 05/27/2016 [facility] Diastolic (mm Hg) 79 05/27/2016 [facility] Heart Rate 112 05/27/2016 [facility] Respitory Rate 20 05/27/2016 [facility] Systolic (mm Hg) 144 05/27/2016 [facility] Diastolic (mm Hg) 81 05/27/2016 [facility] Heart Rate 115 05/27/2016 [facility] Systolic (mm Hg) 128 05/27/2016 [facility] Diastolic (mm Hg) 74 05/27/2016 [facility] Heart Rate 100 05/27/2016 [facility] Respitory Rate 16 05/27/2016 [facility] Temperature Oral (F) 98 F 05/27/2016 [facility] Temperature Oral (F) 98 F 05/27/2016 [facility] Temperature Oral (F) 97.6 F 05/27/2016 [facility] Height 30.48 cm 05/26/2016 [facility] Weight 135.455 05/25/2016 [facility] BMI Calculated 44.1 05/25/2016 [facility] Height 175.26 cm 05/25/2016 [facility] BMI Calculated 45.25 05/17/2016 [facility] Height 172.72 cm 05/17/2016 [facility] Weight 135 05/17/2016 [facility] Encounters Location Location Encounter Encounter Reason Attending ADM DC Status Source Details Type Number For Provider Date Date Visit Outpatient [id number] LEFT MOSES 05/25 Active [facility] Outpatient [id number] Moses 02/03 02/04 [facility] /2013 [facility] [place] Outpatient [id number] Moses 03/25 03/26 [facility] /2016 [facility] Inpatient [id number] Moses 05/25 05/27 [facility] Outpatient [id number] Moses 06/06 06/07 [facility] Procedures Procedure Code Date Perfomer Comments Source Procedure on [id number] ulnar tendon [facility] wrist tear [facility] joint<sup>1</sup> Repair of lateral [id number] [facility] ligament [facility] knee joint Repair of [id number] [facility]
--- OUTSIDE RECORDS SUMMARY | 2018-07-14 09:14 | XMS REPORT | Summary of Care ---
:1970 Author Organization [facility] Address [address] [place] [id number]- Encounter HQ Barbara_leonie(FIN) [id number] Date(s): 05/25/16 - 05/27/[address] [address]- Discharge Disposition: Home or Self Care Attending Physician: Ed Patiño MD Admitting Physician: Ed Patiño MD Referring Physician: Ed Patiño MD Vital Signs Most recent to oldest 1 2 3 [Reference Range]: Height 30.48 cm 175.26 cm 172.72 cm (05/26/16 12:00 PM) (05/25/16 12:15 PM) (05/17/16 8:58 AM) Temperature Oral [96.4-99.1 98 DegF 98 DegF 97.6 DegF DegF] (05/27/16 4:03 AM) (05/27/16 12:00 AM) (05/26/16 8:00 PM) Blood Pressure [90-140/60-90 137/79 mmHg 144/81 mmHg 128/74 mmHg mmHg] (05/27/16 9:53 AM) *HI* (05/27/16 4:03 AM) (05/27/16 7:15 AM) Respiratory Rate [14-20 BRMIN] 18 BRMIN 20 BRMIN 16 BRMIN (05/27/16 9:53 AM) (05/27/16 7:15 AM) (05/27/16 4:03 AM) Peripheral Pulse Rate [60-100 112 bpm 115 bpm 100 bpm bpm] *HI* *HI* (05/27/16 4:03 AM) (05/27/16 9:53 AM) (05/27/16 7:15 AM) Weight 135.455 kg 135 kg (05/25/16 12:15 PM) (05/17/16 8:58 AM) Body Mass Index 44.1 m2 45.25 m2 (05/25/16 12:15 PM) (05/17/16 8:58 AM) Problem List Condition Effective Dates Status Health Status Informant Bronchitis(Confirmed) Resolved Osteoarthritis of knee(Confirmed)1 Active Acid reflux(Confirmed) Active Asthma(Confirmed) Active Hypertension(Confirmed) Active Ligament tear(Confirmed)2 Resolved Anxiety and depression(Confirmed) Active Motion sickness(Confirmed) Active Tendonitis, patellar(Confirmed)3 Resolved 1left [id number] knee Allergies, Adverse Reactions, Alerts Substance Reaction Severity Status Bactrim Active codeine Active Latex Active Lortab Active morphine Active penicillins Active Tape Active Medications acetaminophen (ANES) Route: IV, Drug form: INJ, ONCE, Stop date: 05/25/16 10:40:00 [employer] Start Date: 05/25/16 Stop Date: 05/25/16 Status: Completedalbuterol 2.49 mg, 3 mL, Route: NEB, Drug form: SOLN, RQID, PRN Shortness of breath, Start date: 05/25/16 22:04:00 [employer], Duration: 30 day, Stop date: 06/24/16 22:03: 00 CDT Notes: SEE RT DOCUMENTATION (Same as: Jessie) Start Date: 05/25/16 Stop Date: 05/27/16 Status: DiscontinuedAmbien 5 mg, 1 tab, Route: PO, Drug form: TAB, Bedtime, Dosing Weight 135, kg, PRN Insomnia, Start date: 05/25/16 10:45:00 [employer], Duration: 30 day, Stop date: 10:44:00 CDT Notes: (Same As: Ambien) Start Date: 05/25/16 Stop Date: 05/27/16 Status: DiscontinuedANES flumazenil 0.2 mg, 2 mL, Route: IVP, Drug form: INJ, PRN, Dosing Weight 135, kg, PRN Benzodiazepine Reversal, Initial dose, Start date: 05/25/16 9:21:00 [employer], Duration: 30 day, Stop date: 06/24/16 10:20:00 CDT Notes: (Same as: Romazicon) Start Date: 05/25/16 Stop Date: 05/26/16 Status: DiscontinuedANES HYDROmorphone 0.2 mg, 0.1 mL, Route: IVP, Drug form: INJ, Q5Min, Dosing Weight 135, kg, PRN Pain Score 7-10, Startdate: 05/25/16 9:21:00 [employer], Duration: 4 doses or times, Stop date: Limited # of times Notes: Same as Dilaudid Start Date: 05/25/16 Stop Date: 05/26/16 Status: DiscontinuedANES naloxone 0.4 mg, 1 mL, Route: IVP, Drug form: INJ, Q2MIN, Dosing Weight 135, kg, PRN Narcotic Reversal, Startdate: 05/25/16 9:21:00 [employer], Duration: 8 doses or times, Stop date: Limited # of times Notes: Same as Narcan Start Date: 05/25/16 Stop Date: 05/26/16 Status: DiscontinuedANES ondansetron 4 mg, 2 mL, Route: IVP, Drug form: INJ, ONCE, Dosing Weight 135, kg, PRN Nausea & Vomiting, Start date: 05/25/16 9:21:00 [employer] Notes: (Same as: Mel) MEDICATION WASTE Product Size: 4 mgProduct Wasted: ___ mg Start Date: 05/25/16 Stop Date: 05/26/16 Status: Discontinuedaspirin 325 mg, 1 tab, Route: PO, Drug form: ECTAB, Q12H, Dosing Weight 135, kg, For patients with risk of bleeding, Start date: 05/25/16 15:00:00 [employer], Duration: 30 day, Stop date: 06/24/16 9:00:00 CDT Notes: (Do Not Crush) Do not crush or chew. Start Date: 05/25/16 Stop Date: 05/27/16 Status: Discontinuedaspirin 325 mg tablet, enteric coated 325 mg=1 tab, PO, Q12H, Take one tab at 8AM and 8PM with food, 0 Refill(s) Start Date: 05/27/16 Status: OrderedBD Normal Saline Flush 10 mL, Route: IV, Drug Form: INJ, PRN, PRN Line Flush, Start date: 05/26/16 15: 45:00 [employer], Duration: 30 day, Stop date: 06/25/16 16:44:00 CDT Notes: (Same as: BD Posiflush) Start Date: 05/26/16 Stop Date: 05/27/16 Status: DiscontinuedBD Normal Saline Flush 5 mL, Route: IV, Drug Form: INJ, PRN, PRN Line Flush, Start date: 05/26/16 15:45 :00 [employer], Duration: 30 day, Stop date: 06/25/16 16:44:00 CDT Notes: (Same as: BD Posiflush) Start Date: 05/26/16 Stop Date: 05/27/16 Status: DiscontinuedBenadryl 25 mg, 1 cap, Route: PO, Drug form: CAP, TID, Dosing Weight 135, kg, PRN Itching , Start date: 05/25/16 10:45:00 [employer], Duration: 30 day, Stop date: 06/24/16 10:44 :00 CDT Notes: (Same as: Benadryl) Start Date: 05/25/16 Stop Date: 05/27/16 Status: Discontinuedbupivacaine (ANES) Route: IV, Drug Form: INJ, ONCE, Stop date: 05/25/16 9:34:00 [employer] Start Date: 05/25/16 Stop Date: 05/25/16 Status: CompletedCleocin Phosphate + sodium chloride 0.9% INJ 50 mL 900 mg, 6 mL, Route: IVPB, ONCALL, Start date: 05/25/16 0:00:00 [employer], Duration: 20 hr, Stop date: 05/25/16 19:59:00 [employer] Notes: (Same As: Cleocin) Start Date: 05/25/16 Stop Date: 05/24/16 Status: DeletedColace 100 mg oral capsule 100 mg, 1 cap, Route: PO, Drug form: CAP, BID, Dosing Weight 135, kg, Start date : 05/25/16 17:00:00 [employer], Duration: 30 day, Stop date: 06/24/16 9:00:00 CDT Start Date: 05/25/16 Stop Date: 05/27/16 Status: Discontinuedcyclobenzaprine 10 mg, 1 tab, Route: PO, Drug form: TAB, BID, Dosing Weight 135.455, kg, Start date: 05/26/16 9:00:00 [employer], Duration: 30 day, Stop date: 06/24/16 17:00:00 CDT Notes: (Same As: Flexeril) Start Date: 05/26/16 Stop Date: 05/27/16 Status: Discontinuedcyclobenzaprine 10 mg oral tablet 10 mg=1 tab, PO, BID, 0 Refill(s) Start Date: 05/17/16 Status: OrderedCyklokapron + sodium chloride 0.9% INJ 100 mL 1,000 mg, 10 mL, Route: IVPB, ONCALL, Start date: 05/25/16 0:00:00 [employer], Duration : 2 doses or times Notes: (Same As: Cyklokapron) Start Date: 05/25/16 Stop Date: 05/25/16 Status: [id number] 1,000 mL 1,000 mL, Rate: 100 ml/hr, Infuse over: 10 hr, Route: IV, Dosing Weight 135 kg, Total Volume: 1,000,Start date: 05/25/16 10:45:00 [employer], Duration: 30 day, Stop date: 06/24/16 10:44:00 CDT Start Date: 05/25/16 Stop Date: 05/27/16 Status: Discontinueddexamethasone (ANES) Route: IV, Drug form: INJ, ONCE, Stop date: 05/25/16 10:34:00 [employer] Start Date: 05/25/16 Stop Date: 05/25/16 Status: CompletedDilaudid 4 mg, 1 tab, Route: PO, Drug form: TAB, Q4H, Dosing Weight 135.455, kg, PRN Pain Score 7-10, Start date: 05/26/16 13:48:00 [employer], Duration: 30 day, Stop date : 06/25/16 13:47:00 CDT Notes: (Same as: Dilaudid) Start Date: 05/26/16 Stop Date: 05/26/16 Status: DeletedDilaudid 2 mg, 1 tab, Route: PO, Drug form: TAB, Q4H, Dosing Weight 135.455, kg, PRN Pain Score 1-5, Start date: 05/26/16 13:16:00 [employer], Stop date: 06/25/16 13:15:00 CDT Notes: (Same as: Dilaudid) Start Date: 05/26/16 Stop Date: 05/26/16 Status: Voided With ResultsDilaudid 1 mg, 0.5 mL, Route: IM, Drug form: INJ, Q4H, Dosing Weight 135, kg, PRN Pain Score 7-10, Start date: 05/25/16 10:49:00 [employer], Duration: 30 day, Stop date: 10/03 10:48:00 CDT Notes: Same as Dilaudid Start Date: 05/25/16 Stop Date: 05/26/16 Status: DiscontinuedDULoxetine 60 mg, 2 cap, Route: PO, Drug form: DRC, Bedtime, Dosing Weight 135.455, kg, Start date: 05/25/16 21:00:00 [employer], Duration: 30 day, Stop date: 06/23/16 21:00: 00 CDT Notes: (Same as: Cymbalta) (Do Not Crush) Start Date: 05/25/16 Stop Date: 05/27/16 Status: DiscontinuedDULoxetine 60 mg oral delayed release capsule 60 mg=1 cap, PO, Bedtime, 0 Refill(s) Start Date: 05/17/16 Status: OrderedePHEDrine (ANES) Route: IV, Drug form: INJ, ONCE, Stop date: 05/25/16 9:39:00 [employer] Start Date: 05/25/16 Stop Date: 05/25/16 Status: Completedfamotidine 20 mg, 1 tab, Route: PO, Drug form: TAB, ONCALL, Start date: 05/25/16 0:00:00 [employer], Duration: 20 hr, Stop date: 05/25/16 19:59:00 [employer] Notes: (Same as: Pepcid) Start Date: 05/25/16 Stop Date: 05/25/16 Status: CompletedfentaNYL (ANES) Route: IV, Drug form: INJ, ONCE, Stop date: 05/25/16 9:19:00 [employer] Start Date: 05/25/16 Stop Date: 05/25/16 Status: Completedhydrochlorothiazide 25 mg oral tablet 25 mg=1 tab, PO, Daily, PRN Hypertension, 0 Refill(s) Start Date: 05/17/16 Status: Orderedibuprofen 600 mg, 1 tab, Route: PO, Drug form: TAB, Q8H, Dosing Weight 135.455, kg, Start date: 05/26/16 9:30:00 [employer], Duration: 30 day, Stop date: 06/25/16 8:00:00 CDT Start Date: 05/26/16 Stop Date: 05/27/16 Status: Discontinuedindomethacin 75 mg oral capsule, extended release 75 mg=1 cap, PO, Bedtime, 0 Refill(s) Start Date: 05/17/16 Stop Date: 05/26/16 Status: DiscontinuedketOROLAC 15 mg, 0.5 mL, Route: IV, Drug form: INJ, Q6H, Dosing Weight 135, kg, Start date : 05/25/16 12:00:00 [employer], Duration: 4 doses or times, Stop date: 05/26/16 6:00: 00 [employer] Notes: (Same as:Toradol) IV bolus must be given >15 seconds. Give IM administration slowly and deeply into the muscle.Not for use > 4 days MEDICATION WASTE Product Size: 30 mgProduct Wasted: ___ mg Start Date: 05/25/16 Stop Date: 05/26/16 Status: CompletedketOROLAC 10 mg oral tablet 10 mg=1 tab, PO, Q8H, PRN Pain Score 6-10, X 5 day, # 15 tab, 0 Refill(s), given to patient Start Date: 05/27/16 Stop Date: 06/01/16 Status: OrderedLasix 20 mg oral tablet 20 mg, 1 tab, Route: PO, Drug form: TAB, ONCE, Dosing Weight 135.455, kg, Start date: 05/27/16 8:15:00 [employer], Stop date: 05/27/16 8:15:00 [employer] Notes: (Same as: Lasix) May cause GI upset. Give with food or milk. Start Date: 05/27/16 Stop Date: 05/27/16 Status: Completedlisinopril 10 mg oral tablet 10 mg=1 tab, PO, Bedtime, 0 Refill(s) Start Date: 05/17/16 Status: OrderedLR 1000 mL INJ (ANES) Route: IV, Total Volume: 1,000, Start date: 05/25/16 8:37:00 [employer], Stop date: 11/03 9:37:00 [employer] Start Date: 05/25/16 Stop Date: 05/25/16 Status: CompletedMaalox Advanced Regular Strength SUSP 30 mL, Route: PO, Drug Form: SUSP, Dosing Weight 135, kg, QID, PRN Heartburn, Start date: 05/25/16 10:45:00 [employer], Duration: 30 day, Stop date: 06/24/16 10:44: 00 CDT Start Date: 05/25/16 Stop Date: 05/27/16 Status: Discontinuedmidazolam (ANES) Route: IV, Drug form: SOLN, ONCE, Stop date: 05/25/16 9:19:00 [employer] Start Date: 05/25/16 Stop Date: 05/25/16 Status: Completedmontelukast 10 mg, 1 tab, Route: PO, Drug form: TAB, Bedtime, Dosing Weight 135.455, kg, Start date: 05/25/16 21:00:00 [employer], Duration: 30 day, Stop date: 06/23/16 21:00: 00 CDT Notes: (Same as:Terri) Start Date: 05/25/16 Stop Date: 05/27/16 Status: Discontinuedmontelukast 10 mg oral tablet 10 mg=1 tab, PO, Bedtime, 0 Refill(s) Start Date: 05/17/16 Status: Orderedmorphine Sulfate (ANES) Route: IV, Drug form: SOLN, ONCE, Stop date: 05/25/16 10:29:00 [employer] Start Date: 05/25/16 Stop Date: 05/25/16 Status: Completedmorphine Sulfate (ANES) Route: IV, Drug form: SOLN, ONCE, Stop date: 05/25/16 9:34:00 [employer] Start Date: 05/25/16 Stop Date: 05/25/16 Status: Completedmorphine Sulfate (ANES) Route: Intratracheal, Drug form: SOLN, ONCE, Stop date: 05/25/16 10:29:00 [employer] Start Date: 05/25/16 Stop Date: 05/25/16 Status: Completednaloxone 0.1 mg, 0.25 mL, Route: IVP, Drug form: INJ, Q2MIN, Dosing Weight 135, kg, PRN Narcotic Reversal, Start date: 05/25/16 9:17:00 [employer], Duration: 8 doses or times , Stop date: Limited # of times Notes: Same as Narcan Start Date: 05/25/16 Stop Date: 05/27/16 Status: DiscontinuedNS (Bolus) IV 500 mL, 500 ml/hr, Infuse Over: 1 hr, Route: IV, 500, Drug form: INJ, ONCE, Priority: STAT, Dosing Weight 135.455 kg, Start date: 05/26/16 12:54:00 [employer], Duration: 1 doses or times, Stop date: 05/26/16 12:54:00 [employer] Start Date: 05/26/16 Stop Date: 05/26/16 Status: CompletedOfirmev 1,000 mg, 100 mL, Route: IV, Drug form: INJ, ONCALL, Start date: 05/25/16 0:00: 00 [employer], Duration: 20 hr, Stop date: 05/25/16 19:59:00 [employer] Notes: Infuse over 15 minutesDo not exceed 4gm/day of acetaminophen MEDICATION WASTE ProductSize: 1000 mgProduct Wasted: ___ mg Start Date: 05/25/16 Stop Date: 05/25/16 Status: Discontinuedomeprazole 40 mg, Route: PO, Drug form: DRC, Bedtime, Dosing Weight 135.455, kg, Start date : 05/25/16 21:00:00 [employer], Duration: 30 day, Stop date: 06/23/16 21:00:00 CDT Start Date: 05/25/16 Stop Date: 05/25/16 Status: Deletedomeprazole 40 mg oral delayed release capsule 40 mg=1 cap, PO, Bedtime, 0 Refill(s) Start Date: 05/17/16 Status: Orderedondansetron (ANES) Route: IV, Drug form: INJ, ONCE, Stop date: 05/25/16 9:19:00 [employer] Start Date: 05/25/16 Stop Date: 05/25/16 Status: CompletedPercocet 10/325 oral tablet 2 tab, Route: PO, Drug Form: TAB, Dosing Weight 135.455, kg, Q4H, PRN Pain Score 7-10, Start date: 05/26/16 15:36:00 [employer], Duration: 30 day, Stop date: 11/03 15:35:00 CDT Start Date: 05/26/16 Stop Date: 05/27/16 Status: DiscontinuedPercocet 10/325 oral tablet 1 tab, Route: PO, Drug Form: TAB, Dosing Weight 135.455, kg, Q4H, PRN Pain Score 4-6, Start date: 05/26/16 15:36:00 [employer], Duration: 30 day, Stop date: 06/25 15:35:00 CDT Start Date: 05/26/16 Stop Date: 05/27/16 Status: DiscontinuedPercocet 10/325 oral tablet 2 tab, Route: PO, Drug Form: TAB, Dosing Weight 135, kg, Q4H, PRN Pain Score 7- 10, Start date: 05/25/16 10:45:00 [employer], Duration: 30 day, Stop date: 06/24/16 10: 44:00 CDT Start Date: 05/25/16 Stop Date: 05/26/16 Status: DiscontinuedPercocet 10/325 oral tablet 1 tab, Route: PO, Drug Form: TAB, Dosing Weight 135, kg, Q4H, PRN Pain Score 4-6 , Start date: 05/25/16 10:45:00 [employer], Duration: 30 day, Stop date: 06/24/16 10:44 :00 CDT Start Date: 05/25/16 Stop Date: 05/26/16 Status: DiscontinuedPercocet 10/325 oral tablet 1 to 2 tabs, PO, Q4H, PRN as needed for pain, # 90 tab, 0 Refill(s), given to patient Start Date: 05/27/16 Stop Date: 06/10/16 Status: OrderedPhenergan + sodium chloride 0.9% INJ 50 mL 6.25 mg, 0.25 mL, Route: IVPB, Q6H, Dosing Weight 135, kg, PRN Nausea & Vomiting, Start date: 05/25/16 10:45:00 [employer], Duration: 30 day, Stop date: 10:44:00 CDT Notes: Do not give IV push. (Same as: Phenergan) Start Date: 05/25/16 Stop Date: 05/27/16 Status: Discontinuedphenylephrine (ANES) Route: IV, Drug form: INJ, ONCE, Stop date: 05/25/16 9:39:00 [employer] Start Date: 05/25/16 Stop Date: 05/25/16 Status: CompletedProAir HFA 90 mcg/inh inhalation aerosol with adapter 2 puff, INHALATION, QID, PRN as needed for wheezing, 0 Refill(s) Start Date: 05/17/16 Status: OrderedProAir HFA 90 mcg/inh inhalation aerosol with adapter 180 microgram, 2 puff, Route: INHALATION, Drug Form: AERO/A, Dosing Weight 135.455, kg, QID, PRN Wheezing, Start date: 05/25/16 17:12:00 [employer], Duration: 30 day, Stop date: 06/24/16 17:11:00 CDT Start Date: 05/25/16 Stop Date: 05/25/16 Status: Discontinuedpropofol (ANES) (ANES) Route: IV, Drug form: INJ, Start date: 05/25/16 9:05:00 [employer], Stop date: 10:05:00 [employer]IVER Start Date: 05/25/16 Stop Date: 05/25/16 Status: CompletedProtonix 40 mg, 1 tab, Route: PO, Drug form: ECTAB, Before Dinner, Start date: 05/25/16 21:16:00 [employer], Duration: 30 day, Stop date: 06/24/16 16:30:00 CDT Notes: Tablet should not be chewed or crushed.(Same as: Protonix) Start Date: 05/25/16 Stop Date: 05/27/16 Status: DiscontinuedReglan 10 mg, 1 tab, Route: PO, Drug form: TAB, ONCALL, Start date: 05/25/16 0:00:00 [employer], Duration: 20 hr, Stop date: 05/25/16 19:59:00 [employer]IVER Notes: (Same as: Reglan) Take 30 min before meals Start Date: 05/25/16 Stop Date: 05/25/16 Status: Completedscopolamine 1.5 mg transdermal film 1 patch, Route: TOP, Drug Form: ERFILM, Dosing Weight 135, kg, PRE OP, Start date: 05/25/16 8:00:00 [employer], Duration: 30 day, Stop date: 06/24/16 8:59:00 CDT Start Date: 05/25/16 Stop Date: 05/25/16 Status: CompletedSodium Chloride 0.9% IV 25 mL, Route: IV, Start date: 05/26/16 15:45:00 [employer], Duration: 30 day, Stop date : 06/25/16 16:44:00 CDT, PRN Line Flush Start Date: 05/26/16 Stop Date: 05/27/16 Status: Discontinuedtramadol 50 mg oral tablet 50 mg=1 tab, PO, Q4H, PRN Pain Score 6-10, 0 Refill(s) Start Date: 05/17/16 Status: Orderedtranexamic acid (ANES) Route: IV, Drug form: INJ, ONCE, Stop date: 05/25/16 9:49:00 [employer] Start Date: 05/25/16 Stop Date: 05/25/16 Status: CompletedTylenol 500 mg, 1 tab, Route: PO, Drug form: TAB, Q6H, Dosing Weight 135.455, kg, Start date: 05/26/16 12:00:00 [employer], Duration: 30 day, Stop date: 06/25/16 6:00:00 CDT Start Date: 05/26/16 Stop Date: 05/27/16 Status: Discontinuedvancomycin (ANES) (ANES) Route: IV, Drug form: INJ, Start date: 05/25/16 8:43:00 [employer], Stop date: 9:43:00 [employer]IVER Start Date: 05/25/16 Stop Date: 05/25/16 Status: Completedvancomycin (SCIP) 2,000 mg, Route: IVPB, Drug form: INJ, Q24H, Dosing Weight 135, kg, Time Critical Medication, Start date: 05/25/16 11:00:00 [employer]IVER, Duration: 1 doses or times, Stop date: 05/25/16 11:00:00 [employer]IVER, Pharmacy to adjust dose for renal function Start Date: 05/25/16 Stop Date: 05/25/16 Status: Deletedvancomycin (SCIP) 2,000 mg, 500 mL, Route: IVPB, Drug form: SOLN, Q24H, Dosing Weight 135, kg, Time Critical Medication, Start date: 05/26/16 6:00:00 [employer]IVER, Duration: 1 doses or times, Stop date: 05/26/16 6:00:00 [employer] DRIVER, Pharmacy to adjust dose for renal function Notes: TIME CRITICAL MEDICATIONSame as: Vancocin Infusion rate< 1000 mg: infuse over 1 [id number] - 1500 mg: infuse over 1.5 [id number] - 2000 mg: infuse over 2 hours> 2001 mg: infuse over 2.5 hours Start Date: 05/26/16 Stop Date: 05/26/16 Status: Completedvancomycin + sodium chloride 0.9% 500 mL INJ (for IV set) 500 mL 2,000 mg, Route: IVPB, ONCALL, Start date: 05/25/16 0:00:00 [employer]IVER, Duration: 20 hr , Stop date: 05/25/16 19:59:00 [employer] DRIVER Notes: TIME CRITICAL MEDICATION(Same As: Vancocin)Infusion rate< 1000 mg: infuse over 1 [id number] - 1500 mg: infuse over 1.5 [id number] - 2000 mg: infuse over 2 hours> 2001 mg: infuse over 2.5 hours MEDICATION WASTE Product Size: 1000 mgProduct Wasted: ___ mg Start Date: 05/25/16 Stop Date: 05/25/16 Status: DiscontinuedZofran 4 mg, 2 mL, Route: IV, Drug form: INJ, Q8H, Dosing Weight 135, kg, PRN Nausea, Start date: 05/25/16 10:45:00 [employer], Duration: 30 day, Stop date: 06/24/16 10:44: 00 CDT Notes: (Same as: Zofran) MEDICATION WASTE Product Size: 4 mgProduct Wasted: ___ mg Start Date: 05/25/16 Stop Date: 05/27/16 Status: Discontinued Results ELECTROLYTES Most recent to oldest [Reference Range]: 1 2 3 Sodium Lvl [135-145 mEq/L] 143 mEq/L 138 mEq/L (05/26/16 4:28 AM) (05/17/16 10:00 AM) Potassium Lvl [3.5-5.1 mEq/L] 4.3 mEq/L 3.5 mEq/L (05/26/16 4:28 AM) (05/17/16 10:00 AM) Chloride Lvl [95-109 mEq/L] 111 mEq/L *HI* (05/26/16 4:28 AM) CO2 [24-32 mEq/L] 23 mEq/L *LOW* (05/26/16 4:28 AM) AGAP [10.0-20.0 mEq/L] 13.3 mEq/L (05/26/16 4:28 AM) CHEM PANEL Most recent to oldest [Reference Range]: 1 2 3 Creatinine Lvl [0.50-1.40 mg/dL] 0.70 mg/dL 0.98 mg/dL (05/26/16 4:28 AM) (05/25/16 3:22 PM) eGFR 105 mL/min/1.73m2 1 70 mL/min/1.73m2 2 *NA* *NA* (05/26/16 4:28 AM) (05/25/16 3:22 PM) BUN [7-22 mg/dL] 9 mg/dL (05/26/16 4:28 AM) Glucose Lvl [70-99 mg/dL] 127 mg/dL 135 mg/dL *HI* *HI* (05/26/16 4:28 AM) (05/17/16 10:00 AM) Calcium Lvl [8.5-10.5 mg/dL] 8.2 mg/dL *LOW* (05/26/16 4:28 AM) 1Result Comment: The eGFR is calculated using the CKD-EPI formula. In most young , healthy individualsthe eGFR will be >90 mL/min/1.73m2. The eGFR declines with age. An eGFR of 60-89 may be normal in some populations, particularly the elderly, for whom the CKD-EPI formula has not been extensively validated. Use of the eGFR is not recommended in the following populations: Individuals with unstable creatinine concentrations, including patients and those with serious co-morbid conditions. Patients with extremes in muscle mass or diet. The data above are obtained from the National Kid[employer] Disease Education Program ( [employer]) which additionally recommends that when the eGFR is used in patients with extremes of body mass index for purposesof drug dosing, the eGFR should be multiplied by the estimated BMI.2Result Comment: The eGFR is calculated using the CKD-EPI formula. In most young, healthy individualsthe eGFR will be >90 mL/ min/1.73m2. The eGFR declines with age. An eGFR of 60-89 may be normal in some populations, particularly the elderly, for whom the CKD-EPI formula has not been extensively validated. Use of the eGFR is not recommended in the following populations: Individuals with unstable creatinine concentrations, including patients and those with serious co-morbid conditions. Patients with extremes in muscle mass or diet. The data above are obtained from the National Kid[employer] Disease Education Program ( [employer]) which additionally recommends that when the eGFR is used in patients with extremes of body mass index for purposesof drug dosing, the eGFR should be multiplied by the estimated BMI.HEMATOLOGY Most recent to oldest 1 2 3 [Reference Range]: WBC [3.7-10.4 K/CMM] 12.8 K/CMM 16.4 K/CMM *HI* *HI* (05/27/16 8:25 AM) (05/26/16 4:28 AM) RBC [4.20-5.40 M/CMM] 3.75 M/CMM 3.57 M/CMM *LOW* *LOW* (05/27/16 8:25 AM) (05/26/16 4:28 AM) Hgb [12.0-16.0 g/dL] 10.0 g/dL 9.6 g/dL 11.6 g/dL *LOW* *LOW* *LOW* (05/27/16 8:25 AM) (05/26/16 4:28 AM) (05/17/16 10:00 AM) Hct [36.0-48.0 %] 31.0 % 30.1 % 35.6 % *LOW* *LOW* *LOW* (05/27/16 8:25 AM) (05/26/16 4:28 AM) (05/17/16 10:00 AM) MCV [80.0-98.0 fL] 82.5 fL 84.4 fL (05/27/16 8:25 AM) (05/26/16 4:28 AM) MCH [27.0-31.0 pg] 26.7 pg 26.9 pg *LOW* *LOW* (05/27/16 8:25 AM) (05/26/16 4:28 AM) MCHC [32.0-36.0 g/dL] 32.4 g/dL 31.9 g/dL (05/27/16 8:25 AM) *LOW* (05/26/16 4:28 AM) RDW [11.5-14.5 %] 15.1 % 15.1 % *HI* *HI* (05/27/16 8:25 AM) (05/26/16 4:28 AM) Platelet [133-450 K/CMM] 311 K/CMM 320 K/CMM (05/27/16 8:25 AM) (05/26/16 4:28 AM) MPV [7.4-10.4 fL] 8.0 fL 8.7 fL (05/27/16 8:25 AM) (05/26/16 4:28 AM) Segs [45.0-75.0 %] 66.5 % 79.5 % (05/27/16 8:25 AM) *HI* (05/26/16 4:28 AM) Lymphocytes [20.0-40.0 %] 16.6 % 12.3 % *LOW* *LOW* (05/27/16 8:25 AM) (05/26/16 4:28 AM) Monocytes [2.0-12.0 %] 9.5 % 7.2 % (05/27/16 8:25 AM) (05/26/16 4:28 AM) Eosinophils [0.0-4.0 %] 6.6 % 0.8 % *HI* (05/26/16 4:28 AM) (05/27/16 8:25 AM) Basophils [0.0-1.0 %] 0.8 % 0.2 % (05/27/16 8:25 AM) (05/26/16 4:28 AM) Segs-Bands # [1.5-8.1 K/CMM] 8.5 K/CMM 13.0 K/CMM *HI* *HI* (05/27/16 8:25 AM) (05/26/16 4:28 AM) Lymphocytes # [1.0-5.5 K/CMM] 2.1 K/CMM 2.0 K/CMM (05/27/16 8:25 AM) (05/26/16 4:28 AM) Monocytes # [0.0-0.8 K/CMM] 1.2 K/CMM 1.2 K/CMM *HI* *HI* (05/27/16 8:25 AM) (05/26/16 4:28 AM) Eosinophils # [0.0-0.5 K/CMM] 0.9 K/CMM 0.1 K/CMM *HI* (05/26/16 4:28 AM) (05/27/16 8:25 AM) Basophils # [0.0-0.2 K/CMM] 0.1 K/CMM (05/27/16 8:25 AM) Sed Rate [0-20 mm/hr] 15 mm/hr (05/25/16 3:22 PM) BACTERIAL - SEROLOGY Most recent to oldest [Reference Range]: 1 2 3 MRSA by PCR Negative (05/17/16 10:00 AM) Immunizations No data available for this section Procedures Procedure Date Related Diagnosis Body Site Procedure on wrist joint1 Repair of lateral collateral ligament of knee joint Repair of patellar tendon 1ulnar tendon tear Social History Social History Type Response Alcohol Current Smoking Status Never smoker; Exposure to Tobacco Smoke None; Cigarette Smoking Last 365 Days No; Reg Smoking Cessation Counseling No Assessment and Plan No data available for this section
--- OUTSIDE RECORDS SUMMARY | 2018-07-14 09:14 | XMS REPORT | Summary of Care ---
:1970 Author Encounter HQ Martínntr_leonie(DAVE) [id number] Date(s): 02/03/14 - 02/03/[address] Discharge Disposition: Home Physician Attending: Ed Patiño MD Physician Admitting: Ed Patiño MD Reason for Visit 719.46 RIGHT KNEE Problem List No data available for this section Allergies, Adverse Reactions, Alerts No data available for this section Medications No data available for this section Medications Administered During Your Visit No data available for this section Immunizations No data available for this section
--- OUTSIDE RECORDS SUMMARY | 2018-07-14 09:14 | XMS REPORT | Summary of Care ---
:1970 Author Organization [facility] Address [address] [place] [id number]- Encounter HQ Encntr_alias(FIN) [id number] Date(s): 03/25/16 - 03/25/[address] [address]- Discharge Disposition: Home or Self Care Attending Physician: Ed Patiño MD Admitting Physician: Ed Patiño MD Vital Signs No data available for this section Problem List No data available for this section Allergies, Adverse Reactions, Alerts No data available for this section Medications No data available for this section Results No data available for this section Immunizations No data available for this section Procedures No data available for this section Social History No data available for this section Assessment and Plan No data available for this section
--- OUTSIDE RECORDS SUMMARY | 2018-07-14 09:15 | XMS REPORT | Summary of Care ---
:1970 Author Organization [facility] Address [address] [place] [address]- Encounter HQ Martínntr_leonie(FIN) [id number] Date(s): 06/06/16 - 06/06/[address] [address]- Discharge Disposition: Home or Self Care Attending Physician: Ed Patiño MD Admitting Physician: Ed Patiño MD Vital Signs No data available for this section Problem List Condition Effective Dates Status Health Status Informant Bronchitis(Confirmed) Resolved Osteoarthritis of knee(Confirmed)1 Active Acid reflux(Confirmed) Active Asthma(Confirmed) Active Hypertension(Confirmed) Active Ligament tear(Confirmed)2 Resolved Anxiety and depression(Confirmed) Active Motion sickness(Confirmed) Active Tendonitis, patellar(Confirmed)3 Resolved 1left [id number] knee Allergies, Adverse Reactions, Alerts Substance Reaction Severity Status Bactrim Active codeine Active Latex Active Lortab Active morphine Active penicillins Active Tape Active Medications No data available for this section [...]
[2018-07-14 10:16] LABS: Urine Blood TRACE (NEG); Urine Glucose NEGATIVE (NEG); Urine Protein NEGATIVE (NEG); Urine Specific Gravity 1.015 (1.005-1.030); Urine pH 5.5 (5.0-7.0)
--- NOTE | 2018-07-14 10:45 | RAD REPORT ---
EXAM DESCRIPTION: RAD - Tib Fib Right - 07/14/2018 10:14 am CLINICAL HISTORY: Right leg pain . FINDINGS: No fracture is seen Large calcaneal spur
--- NOTE | 2018-07-14 10:52 | ER ---
Nurse's Notes [facility] Name: Leyla Dutton Age: 47 yrs Sex: Female : 1970 Arrival Date: 07/14/2018 Time: 09:14 Bed 15 Private MD: Diagnosis: Strain of other muscle(s) and tendon(s) at lower leg level, right leg;Strain of other muscle(s) and tendon(s) of posterior muscle group at lower leg level, right leg Presentation: 07/14 09:34 Presenting complaint: Patient states: Stepping down at work and felt 3 pops in the jl7 right calf. Transition of care: patient was not received from another setting of care. Onset of symptoms was July 14, 2018 at 06:30. Risk Assessment: Do you want to hurt yourself or someone else? Patient reports no desire to harm self or others. Initial Sepsis Screen: Does the patient meet any 2 criteria? No. Patient's initial sepsis screen is negative. Does the patient have a suspected source of infection? No. Patient's initial sepsis screen is negative. Care prior to arrival: Medication(s) given: Motrin. 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 - Social history:: Smoking status: Patient/guardian denies using tobacco. - Ebola Screening: : No symptoms or risks identified at this time. - Family history:: not pertinent. - Hospitalizations: : No recent hospitalization is reported. Screenin:40 Abuse screen: Denies threats or abuse. Denies injuries from another. Nutritional jl7 screening: No deficits noted. Tuberculosis screening: No symptoms or risk factors identified. Fall Risk Gait- Impaired (20 pts.). Total Silverio Fall Scale indicates No Risk (0-24 pts). Assessment: 09:40 General: Appears in no apparent distress. uncomfortable, Behavior is cooperative, jl7 anxious, crying. Pain: Complains of pain in right calf Pain radiates to right reyes Pain currently is 9 out of 10 on a pain scale. Quality of pain is described as tingling, Pain began suddenly, 3 hours ago. Is continuous, Aggravated by weight bearing. Neuro: Level of Consciousness is awake, alert, obeys commands, Oriented to person, place, time, situation. Cardiovascular: Patient's skin is warm and dry. Pulses are palpable in right dorsalis pedis artery. Respiratory: Airway is patent Respiratory effort is even, unlabored, Respiratory pattern is regular, symmetrical. Derm: Skin is pink, warm \T\ dry. 10:45 Reassessment: Patient appears in no apparent distress at this time. No changes from jl7 previously documented assessment. Patient and/or family updated on plan of care and expected duration. Pain level reassessed. Patient is alert, oriented x 3, equal unlabored respirations, skin warm/dry/pink. Vital Signs: 09:36 BP 131 / 64; Pulse 94; Resp 16 S; Temp 98(O); Pulse Ox 100% on R/A; Pain 9/10; jl7 11:00 BP 124 / 59; Pulse 79; Resp 16 S; Pulse Ox 100% on R/A; jl7 ED Course: 09:14 Patient arrived in ED. as 09:18 Rush Cardenas, BHARATI is Primary Nurse. jl7 09:21 Antonio Arriola MD is Attending Physician. rn 09:36 Triage completed. jl7 09:36 Arm band placed on right wrist. jl7 09:40 Patient has correct armband on for positive identification. Bed in low position. Call jl7 light in reach. Side rails up X 1. Pulse ox on. NIBP on. 09:40 Urine collected: clean catch specimen, clear. jl7 10:12 X-ray completed. Portable x-ray completed in exam room. Patient tolerated procedure la2 well. 10:14 XRAY Tib Fib RIGHT In Process Unspecified. EDMS 10:50 Delvin Rajput MD is Referral Physician. rn 11:15 Crutch training done. Orthoglass splint: Posterior short lleg splint applied on right jl7 leg. Checked by ERD. 11:27 No provider procedures requiring assistance completed. Patient did not have IV access jl7 during this emergency room visit. Administered Medications: No medications were administered Outcome: 10:51 Discharge ordered by . rn 11:15 Discharged to home ambulatory, with crutches. jl7 11:15 Condition: stable 11:15 Discharge instructions given to patient, family, Instructed on discharge instructions, follow up and referral plans. medication usage, crutch walking, Demonstrated understanding of instructions, follow-up care, medications, crutch walking, Prescriptions given X 1. 11:28 Patient left the ED. jl7 Signatures: Dispatcher [employer] EDMS Jaclyn Castillo Roman, MD MD rn Leal, Jahala, RN RN jl7 Cherry Bazan
--- NOTE | 2018-07-14 10:52 | EDPHYS ---
Physician Documentation [facility] Name: Leyla Dutton Age: 47 yrs Sex: Female : 1970 Arrival Date: 07/14/2018 Time: 09:14 Bed 15 Private MD: ED Physician Antonio Arriola HPI: 07/14 10:05 This 47 yrs old Female presents to ER via Wheelchair with complaints of Leg rn Pain, Foot Pain. 10:05 The patient presents with decreased range of motion, an injury, pain. The complaints rn affect the right calf and medial aspect of right calf. Onset: The symptoms/episode began/occurred just prior to arrival. Modifying factors: The symptoms are alleviated by remaining still, the symptoms are aggravated by movement, weight bearing. Severity of symptoms: At their worst the symptoms were moderate, in the emergency department the symptoms are unchanged. The patient has not experienced similar symptoms in the past. Reports walking downs steps x 2, no fall no mis-step, heard "a couple of pops and snaps", + calf pain with painful ROM, does not feel like had bony injury, s/p 2 rounds of levaquin recently for UTI.. 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 - Social history:: Smoking status: Patient/guardian denies using tobacco. - Ebola Screening: : No symptoms or risks identified at this time. - Family history:: not pertinent. - Hospitalizations: : No recent hospitalization is reported. ROS: 10:05 Constitutional: Negative for fever, chills, and weight loss, MS/Extremity: + injury and rn painful ROM Exam: 10:05 Constitutional: This is a well developed, well nourished patient who is awake, alert, rn appears uncomfortable MS/ Extremity: Pulses equal, no cyanosis. Neurovascular intact. + painful palpation of posterior and medial right calf, no tenderness along achilles, + plantar flexion intact with squeezing of calf, no bony tenderness. 2+ distal pulses, compartments soft. Vital Signs: 09:36 BP 131 / 64; Pulse 94; Resp 16 S; Temp 98(O); Pulse Ox 100% on R/A; Pain 9/10; jl7 11:00 BP 124 / 59; Pulse 79; Resp 16 S; Pulse Ox 100% on R/A; jl7 MDM: 09:21 Patient medically screened. rn 10:48 Differential diagnosis: tendon injury, strain, sprain. Data reviewed: vital signs, rn nurses notes, radiologic studies, plain films, and as a result, I will discharge patient. Counseling: I had a detailed discussion with the patient and/or guardian regarding: the historical points, exam findings, and any diagnostic results supporting the discharge/admit diagnosis, radiology results, the need for outpatient follow up, to return to the emergency department if symptoms worsen or persist or if there are any questions or concerns that arise at home. Special discussion: I discussed with the patient/guardian in detail that at this point there is no indication for admission to the hospital. It is understood, however, that if the symptoms persist or worsen the patient needs to return immediately for re-evaluation. Based on the history and exam findings, there is no indication for further emergent testing or inpatient evaluation. I discussed with the patient/guardian the need to see the orthopedic surgeon for further evaluation of the symptoms. ED course: Most likely tendon injury, neg xrays, will dc home with instructions to get MRI to further eval. . 07/14 09:56 Order name: Urine Dipstick--Ancillary (enter results); Complete Time: 10:41 eb 07/14 09:56 Order name: Urine --Ancillary (enter results) eb 07/14 09:32 Order name: XRAY Tib Fib RIGHT; Complete Time: 10:48 rn 07/14 10:52 Order name: Splint - Posterior Leg; Complete Time: 11:25 rn 07/14 10:52 Order name: Crutches; Complete Time: 11:25 rn Administered Medications: No medications were administered Disposition: 07/14/18 10:51 Discharged to Home. Impression: Strain of other muscle(s) and tendon(s) at lower leg level, right leg, Strain of other muscle(s) and tendon(s) of posterior muscle group at lower leg level, right leg. - Condition is Stable. - Discharge Instructions: Muscle Strain. - Prescriptions for Cyclobenzaprine 10 mg Oral Tablet - take 1 tablet by ORAL route every 8 hours As needed; 20 tablet. - Medication Reconciliation Form, Thank You Letter, Antibiotic Education, Prescription Opioid Use form. - Work release form (07/14/18 11:53). eb - Follow up: Delvin Rajput MD; When: As needed; Reason: Recheck today's complaints, Re-evaluation by your physician. - Problem is new. - Symptoms are unchanged. Signatures: Dispatcher [employer] EDMS Antonio Arriola MD MD rn Leal, Jahala, RN RN jl7 Blank Lindo Corrections: (The following items were deleted from the chart) 11:28 10:51 07/14/2018 10:51 Discharged to Home. Impression: Strain of other muscle(s) and jl7 tendon(s) at lower leg level, right leg; Strain of other muscle(s) and tendon(s) of posterior muscle group at lower leg level, right leg. Condition is Stable. Forms are Medication Reconciliation Form, Thank You Letter, Antibiotic Education, Prescription Opioid Use. Follow up: Delvin Rajput; When: As needed; Reason: Recheck today's complaints, Re-evaluation by your physician. Problem is new. Symptoms are unchanged. rn
[2018-07-14 11:53] VITALS: TEMP 98.3
[2018-07-14 11:54] VITALS: BP 141/91; O2SAT 99
== END 2018-07-14 11:28 | disposition home or self-care (01) ==
LOC: ER 09:10
DX: S86.111A Strain of other muscle(s) and tendon(s) of posterior muscle group at lower leg level, right leg, initial encounter (principal); S86.911A Strain of unspecified muscle(s) and tendon(s) at lower leg level, right leg, initial encounter; F41.9 Anxiety disorder, unspecified; J45.909 Unspecified asthma, uncomplicated; I10 Essential (primary) hypertension; F32.9 Major depressive disorder, single episode, unspecified; Z88.1 Allergy status to other antibiotic agents; Z88.5 Allergy status to narcotic agent; Z88.0 Allergy status to penicillin
CPT/HCPCS: 81003; 81025; 99284

== ENCOUNTER 2019-12-20 16:54 | Emergency (ER) | payer OTHER, SELFPAY ==
[2019-12-20] MEDS ORDERED: DIPHENHYDRAMINE 50 MG/ML VIAL ONE (18:03)
[2019-12-20] MEDS ORDERED: METHYLPREDNISOLONE 125 MG INJ ONE (18:03)
[2019-12-20] MEDS ORDERED: FAMOTIDINE 20 MG/2 ML VIAL IV ONE (18:04)
--- NOTE | 2019-12-20 18:43 | ER ---
Nurse's Notes [facility] Name: Leyla Dutton Age: 48 yrs Sex: Female : 1970 Arrival Date: 12/20/2019 Time: 16:56 Bed 20 Private MD: Diagnosis: Anaphylactic reaction due to fruits and vegetables Presentation: 12/19 16:58 Chief complaint: Patient states: Eyes started itching, hives appeared on abdomen, and dm5 it became difficult to swallow after eating an orange around 1600 today. Pt took 50 mg of benadryl at home at approximately 1615. Pt states that lip, eyes and hives have improved. Pt also states that she has abdominal pain. Similar pain felt yesterday following eating an orange. Onset of symptoms was December 20, 2019. 16:58 Method Of Arrival: Ambulatory 5 16:58 Acuity: IRINA 2 dm5 17:06 Coronavirus screen: At this time, the client does not indicate any symptoms associated jd3 with coronavirus-19. Ebola Screen: Patient negative for fever greater than or equal to 101.5 degrees Fahrenheit, and additional compatible Ebola Virus Disease symptoms. Initial Sepsis Screen: Does the patient meet any 2 criteria? No. Patient's initial sepsis screen is negative. Does the patient have a suspected source of infection? No. Patient's initial sepsis screen is negative. Risk Assessment: Do you want to hurt yourself or someone else? Patient reports no desire to harm self or others. Triage Assessment: 17:00 General: Appears in no apparent distress. uncomfortable, obese, Behavior is bp cooperative, appropriate for age, anxious. Pain: Denies pain. EENT: ROSEANN-ORBITAL EDEMA. Neuro: No deficits noted. Cardiovascular: No deficits noted. Respiratory: No deficits noted. GI: No signs and/or symptoms were reported involving the gastrointestinal system. : No signs and/or symptoms were reported regarding the genitourinary system. Derm: Reports itching. Musculoskeletal: No deficits noted. Historical: - Allergies: 17:01 Bactrim (rash); dm5 17:01 Codeine (High Blood Pressure); dm5 17:01 Erythromycin (rash); dm5 17:01 Keflex (rash); dm5 17:01 Lortab (rash); dm5 17:01 Morphine (High Blood Pressure); dm5 17:01 PENICILLINS (Hives); dm5 17:06 Levaquin; jd3 - PMHx: 17:06 Anxiety; Arthritis; Asthma; Depression; Hypertension; jd3 - Immunization history:: Adult Immunizations up to date. - Social history:: Smoking status: unknown. Screenin:10 Abuse screen: Denies threats or abuse. Denies injuries from another. Nutritional bp screening: No deficits noted. Tuberculosis screening: No symptoms or risk factors identified. Fall Risk None identified. Assessment: 17:00 General: SEE TRIAGE NOTE. bp 18:00 Reassessment: Patient states symptoms have improved. Respiratory: Airway is patent bp Respiratory effort is even, unlabored. 18:44 Reassessment: PT D/C HOME AMBULATORY WITH FAMILY, DX WITH ANAPHYLACTOID REACTION. bp Vital Signs: 17:04 BP 152 / 74; Pulse 102; Resp 20 S; Temp 98.0(O); Pulse Ox 99% on R/A; Weight 145.15 kg jd3 (R); Height 5 ft. 8 in. (172.72 cm) (R); Pain 6/10; 18:00 BP 112 / 78; Pulse 92; Resp 17; Pulse Ox 99% ; bp 18:44 BP 106 / 58; Pulse 72; Resp 17; Temp 98; Pulse Ox 100% ; bp 17:04 Body Mass Index 48.66 (145.15 kg, 172.72 cm) jd3 ED Course: 16:56 Patient arrived in ED. as 17:00 Triage completed. dm5 17:01 Arm band placed on Patient placed in an exam room. dm5 17:10 Christopher Truong, RN is Primary Nurse. bp 17:10 Patient has correct armband on for positive identification. Bed in low position. Call bp light in reach. Side rails up X2. Adult w/ patient. 17:17 Avila Montoya PA is PHCP. jr8 17:17 Antonio Arriola MD is Attending Physician. jr8 17:30 Inserted saline lock: 22 gauge in right hand, using aseptic technique. bp 18:44 No provider procedures requiring assistance completed. IV discontinued, intact, bp bleeding controlled, No redness/swelling at site. Pressure dressing applied. Administered Medications: 17:30 Drug: SOLU-Medrol 125 mg Route: IVP; Site: right hand; bp 18:42 Follow up: Response: Marked relief of symptoms bp 17:30 Drug: Pepcid 20 mg Route: IVP; Site: right hand; bp 18:42 Follow up: Response: Marked relief of symptoms bp 17:30 Drug: Benadryl 25 mg Route: IVP; Site: right hand; bp 18:43 Follow up: Response: Marked relief of symptoms bp Outcome: 18:43 Discharge ordered by . duke 18:45 Discharged to home ambulatory, with family. bp 18:45 Condition: stable 18:45 Discharge instructions given to patient, Instructed on discharge instructions, follow up and referral plans. medication usage, Demonstrated understanding of instructions, follow-up care, medications. 18:45 Prescriptions given X 2. bp 18:56 Patient left the ED. bp Signatures: Adriana Nieves, RN RN dm5 Jaclyn Castillo Josh, PA PA jr8 Osman Manning RN RN jd3 Christopher Truong RN RN bp
--- NOTE | 2019-12-20 18:44 | EDPHYS ---
Physician Documentation [facility] Name: Leyla Dutton Age: 48 yrs Sex: Female : 1970 Arrival Date: 12/20/2019 Time: 16:56 Bed 20 Private MD: ED Physician Antonio Arriola HPI: 12/19 18:44 This 48 yrs old Female presents to ER via Ambulatory with complaints of jr8 Allergic Reaction. 18:44 The patient's rash thought to be caused by food. The rash is located on the body jr8 diffusely. The rash can be described as urticarial. Onset: The symptoms/episode began/occurred acutely, today. Associated signs and symptoms: Pertinent positives: burning sensation, itching, nausea. Severity of symptoms: At their worst the symptoms were moderate in the emergency department the symptoms have improved mildly. Treatment given at home: Benadryl. The patient has experienced a previous episode. The patient has not recently seen a physician. Patient stated that she though she had mild reaction to an orange the other day. Today tried it again and had immediate allergic reaction. Took benadryl 50 mg [employer] with some relief . Historical: - Allergies: 17:01 Bactrim (rash); dm5 17:01 Codeine (High Blood Pressure); dm5 17:01 Erythromycin (rash); dm5 17:01 Keflex (rash); dm5 17:01 Lortab (rash); dm5 17:01 Morphine (High Blood Pressure); dm5 17:01 PENICILLINS (Hives); dm5 17:06 Levaquin; jd3 - PMHx: 17:06 Anxiety; Arthritis; Asthma; Depression; Hypertension; jd3 - Immunization history:: Adult Immunizations up to date. - Social history:: Smoking status: unknown. ROS: 18:44 Eyes: Positive for itching, tearing, redness, swelling ENT: Negative for injury, pain, jr8 and discharge, Neck: Negative for injury, pain, and swelling, Cardiovascular: Negative for chest pain, palpitations, and edema, Respiratory: Negative for shortness of breath, cough, wheezing, and pleuritic chest pain, Back: Negative for injury and pain, MS/Extremity: Negative for injury and deformity, Neuro: Negative for headache, weakness, numbness, tingling, and seizure. 18:44 Abdomen/GI: Positive for nausea, abdominal cramps. 18:44 Skin: Positive for rash. Exam: 18:44 Eyes: Pupils equal round and reactive to light, extra-ocular motions intact. Lids and jr8 lashes normal. Conjunctiva and sclera are non-icteric and not injected. Cornea within normal limits. Periorbital areas with edema ENT: Nares patent. No nasal discharge, no septal abnormalities noted. Tympanic membranes are normal and external auditory canals are clear. Oropharynx with no redness, swelling, or masses, exudates, or evidence of obstruction, uvula midline. Mucous membranes moist. Neck: Trachea midline, no thyromegaly or masses palpated, and no cervical lymphadenopathy. Supple, full range of motion without nuchal rigidity, or vertebral point tenderness. No Meningismus. Cardiovascular: Regular rate and rhythm with a normal S1 and S2. No gallops, murmurs, or rubs. Normal PMI, no JVD. No pulse deficits. Respiratory: Lungs have equal breath sounds bilaterally, clear to auscultation and percussion. No rales, rhonchi or wheezes noted. No increased work of breathing, no retractions or nasal flaring. Abdomen/GI: Soft, non-tender, with normal bowel sounds. No distension or tympany. No guarding or rebound. No evidence of tenderness throughout. Back: No spinal tenderness. No costovertebral tenderness. Full range of motion. MS/ Extremity: Pulses equal, no cyanosis. Neurovascular intact. Full, normal range of motion. Neuro: Awake and alert, GCS 15, oriented to person, place, time, and situation. Cranial nerves II-XII grossly intact. Motor strength 5/5 in all extremities. Sensory grossly intact. Cerebellar exam normal. Normal gait. 18:44 Skin: rash a mild rash is noted, rash can be described as urticarial. Vital Signs: 17:04 BP 152 / 74; Pulse 102; Resp 20 S; Temp 98.0(O); Pulse Ox 99% on R/A; Weight 145.15 kg jd3 (R); Height 5 ft. 8 in. (172.72 cm) (R); Pain 6/10; 18:00 BP 112 / 78; Pulse 92; Resp 17; Pulse Ox 99% ; bp 18:44 BP 106 / 58; Pulse 72; Resp 17; Temp 98; Pulse Ox 100% ; bp 17:04 Body Mass Index 48.66 (145.15 kg, 172.72 cm) jd3 MDM: 17:18 Patient medically screened. jr8 18:38 Data reviewed: vital signs, nurses notes, and as a result, I will discharge patient. jr8 Data interpreted: Pulse oximetry: on room air is 99 %. Interpretation: normal. Counseling: I had a detailed discussion with the patient and/or guardian regarding: the historical points, exam findings, and any diagnostic results supporting the discharge/admit diagnosis, the need for outpatient follow up, a family practitioner, to return to the emergency department if symptoms worsen or persist or if there are any questions or concerns that arise at home. Response to treatment: the patient's symptoms have markedly improved after treatment. 12/19 17:18 Order name: IV; Complete Time: 18:38 jr8 Administered Medications: 17:30 Drug: SOLU-Medrol 125 mg Route: IVP; Site: right hand; bp 18:42 Follow up: Response: Marked relief of symptoms bp 17:30 Drug: Pepcid 20 mg Route: IVP; Site: right hand; bp 18:42 Follow up: Response: Marked relief of symptoms bp 17:30 Drug: Benadryl 25 mg Route: IVP; Site: right hand; bp 18:43 Follow up: Response: Marked relief of symptoms bp Disposition: 18:58 Co-signature as Attending Physician, Antonio Arriola MD. rn Disposition: 12/20/19 18:43 Discharged to Home. Impression: Anaphylactic reaction due to fruits and vegetables. - Condition is Stable. - Discharge Instructions: Anaphylactic Reaction, Adult. - Prescriptions for Pepcid 20 mg Oral Tablet - take 1 tablet by ORAL route every 12 hours for 5 days; 10 tablet. Prednisone 20 mg Oral Tablet - take 1 tablet by ORAL route once daily for 5 days; 5 tablet. - Medication Reconciliation Form, Thank You Letter, Antibiotic Education, Prescription Opioid Use form. - Follow up: Private Physician; When: As needed; Reason: Recheck today's complaints, Continuance of care, Re-evaluation by your physician. - Problem is new. - Symptoms have improved. Signatures: Adriana Nieves RN RN dm5 Antonio Arriola MD MD rn Roszak, Josh, PA PA jr8 Osman Manning RN RN jd3 Christopher Truong, RN RN bp Corrections: (The following items were deleted from the chart) 18:56 18:43 12/20/2019 18:43 Discharged to Home. Impression: Anaphylactic reaction due to bp fruits and vegetables. Condition is Stable. Forms are Medication Reconciliation Form, Thank You Letter, Antibiotic Education, Prescription Opioid Use. Follow up: Private Physician; When: As needed; Reason: Recheck today's complaints, Continuance of care, Re-evaluation by your physician. Problem is new. Symptoms have improved. jr8
[2019-12-20 19:23] VITALS: BP 106/58; TEMP 98; O2SAT 100
--- OUTSIDE RECORDS SUMMARY | 2019-12-25 21:09 | XMS REPORT | Continuity of Care Document ---
:1970 Author Organization [employer] Information [place] Care Team Providers Name Role Phone [facility] Unavailable Un available Problems Problem Status Onset Classification Date Comments Sour e Date Reported 10554, M17.12 Active 05/03/19 MH OSTEOARTHRITIS LEFT 17 [facility] LEFT KNEE PAIN Active 03/20/19 MH 01 [facility] 719.46 RIGHT KNEE Active 03/20/19 MH 01 [facility] Bronchitis Resolved Problem 06/09/2016 MH (disorder) [facility] Osteoarthritis of Active Problem 06/09/2016 left knee M H knee (disorder) Nikita rial [facility] Gastroesophageal Active Problem 06/09/2016 MH reflux disease [facility] (disorder) [facility] Asthma (disorder) Active Problem 06/09/2016 M H [facility] Hypertensive Active Problem 06/09/2016 [facility] disorder, [facility] ([facility]order) [facility] Ligament rupture Resolved Problem 06/09/2016 right MH (disorder) wrist [facility] Mixed anxiety and Active Problem 06/09/2016 M H depressive disorder [facility] (disorder) [facility] Motion sickness Active Problem 06/09/2016 MH (disorder) [facility] Patellar tendonitis Resolved Problem 06/09/2016 left knee MH (disorder) [facility] ILLNESS, Active MH UNSPECIFIED [facility] Medications Medication Details Route Status Patient Ordering Order Source Instructions Provider Date Ketorolac 10 mg = 1 tab, Active Tromethamine 10 MG PO, Q8H, PRN 2016 [facility] Oral Tablet Pain Score [facility] 6-10, X 5 day, # 15 tab, 0 Refill(s), given to patient Aspirin 325 MG 325 mg = 1 Active 05/27/ Enteric Coated tab, PO, Q12H, 2017 [facility] Tablet Take one tab [facility] at 8AM and 8PM with food, 0 Refill(s) Acetaminophen 325 1 to 2 tabs, Active 05/27/ H MG / Oxycodone PO, Q4H, PRN 2016 [facility] Hydrochloride 10 MG as needed for [facility] Oral Tablet pain, # 90 [Percocet 10/325] tab, 0 Refill(s), given to patient Furosemide 20 MG Notes: (Same Inactive H Oral Tablet [Lasix] as: Lasix) 2016 [facility] cause [facility] [place] upset. Give with food or milk. BD Normal Saline Notes: (Same No Longer Flush as: BD Active 2016 [facility] Posiflush) [facility] Sodium Chloride 25 mL, Route: No Longer 0.9% IV IV, Start Active 2016 [facility] date: 05/26/16 [facility] 15:45:00 SALES PROJECT ENGINEER, Duration: 30 day, Stop date: 06/25/16 16:44:00 CDT, PRN Line Flush Acetaminophen 325 2 tab, Route: No Longer MG / Oxycodone PO, Drug Form: Active 2016 [facility] Hydrochloride 10 MG TAB, Dosing [facility] Oral Tablet Weight [Percocet 10/325] 135.455, kg, Q4H, PRN Pain Score 7-10, Start date: 05/26/16 15:36:00 SALES PROJECT ENGINEER, Duration: 30 day, Stop date: 06/25/16 15:35:00 CDT Dilaudid Notes: (Same Inactive as: Dilaudid) 2016 [facility] Dilaudid Notes: (Same Inactive as: Dilaudid) 2016 [facility] Sodium Chloride 500 mL, 500 Inactive 0.154 MEQ/ML ml/hr, Infuse 2017 [facility] Injectable Solution Over: 1 hr, [facility] Route: IV, 500, Drug form: INJ, ONCE, Priority: STAT, Dosing Weight 135.455 kg, Start date: 05/26/16 12:54:00 SALES PROJECT ENGINEER, Duration: 1 doses or times, Stop date: 05/26/16 12:54:00 SALES PROJECT ENGINEER Tylenol 500 mg, 1 tab, No Longer Route: PO, Active 2016 [facility] Drug form: [facility] TAB, Q6H, Dosing Weight 135.455, kg, Start date: 05/26/16 12:00:00 SALES PROJECT ENGINEER, Duration: 30 day, Stop date: 06/25/16 6:00:00 CDT Advil 600 mg, 1 tab, No Longer Route: PO, Active 2016 [facility] Drug form: [facility] TAB, Q8H, Dosing Weight 135.455, kg, Start date: 05/26/16 9:30:00 SALES PROJECT ENGINEER, Duration: 30 day, Stop date: 06/25/16 8:00:00 CDT cyclobenzaprine Notes: (Same No Longer 05/26/ H As: Flexeril) Active 2016 [facility] Vancomycin 2001 mg: Inactive infuse over 2016 [facility] 2.5 hours [facility] albuterol Notes: SEE RT No Longer DOCUMENTATION Active 2016 [facility] (Same as: [facility] Proventil) Protonix Notes: Tablet No Longer should not be Active 2016 [facility] chewed or [facility] crushed. (Same as: Protonix) Omeprazole 40 mg, Route: Inactive PO, Drug form: [address] [place] [address], Bedtime, [facility] Dosing Weight 135.455, kg, Start date: 05/25/16 21:00:00 SALES PROJECT ENGINEER, Duration: 30 day, Stop date: 06/23/16 21:00:00 CDT montelukast Notes: (Same No Longer as:Singulair) Active 2016 [facility] duloxetine Notes: (Same No Longer as: Cymbalta) Active [address] [place] [address] (Do Not [facility] Crush) 200 ACTUAT 180 microgram, Inactive Albuterol 0.09 2 puff, Route: 2016 [facility] MG/ACTUAT Metered INHALATION, Ci ty Dose Inhaler Drug Form: [ProAir HFA] AERO/A, Dosing Weight 135.455, kg, QID, PRN Wheezing, Start date: 05/25/16 17:12:00 SALES PROJECT ENGINEER, Duration: 30 day, Stop date: 06/24/16 17:11:00 CDT Docusate Sodium 100 100 mg, 1 cap, No Longer MG Oral Capsule Route: PO, Active 2016 [facility] [Colace] Drug form: [facility] CAP, BID, Dosing Weight 135, kg, Start date: 05/25/16 17:00:00 SALES PROJECT ENGINEER, Duration: 30 day, Stop date: 06/24/16 9:00:00 CDT Aspirin Notes: (Do Not No Longer Crush) Do not Active [address] [place] [address] crush or chew. [facility] Ketorolac 4 days No Longer MEDICATION Active [address] [place] [address] WASTE [facility] Product Size: 30 mg Product Wasted: ___ mg Vancomycin 2,000 mg, Inactive Route: IVPB, 2016 [facility] Drug form: [facility] INJ, Q24H, Dosing Weight 135, kg, Time Critical Medication, Start date: 05/25/16 11:00:00 SALES PROJECT ENGINEER, Duration: 1 doses or times, Stop date: 05/25/16 11:00:00 SALES PROJECT ENGINEER, Pharmacy to adjust dose for renal function Dilaudid Notes: Same as No Longer Dilaudid Active 2016 [facility] Phenergan Notes: Do not No Longer give IV push. Active 2016 [facility] (Same as: [facility] Benadryl Notes: (Same No Longer as: Benadryl) Active 2016 [facility] Zofran Notes: (Same No Longer as: Zofran) Active 2016 [facility] MEDICATION [facility] WASTE Product Size: 4 mg Product Wasted: ___ mg Acetaminophen 325 2 tab, Route: No Longer MG / Oxycodone PO, Drug Form: Active 2016 [facility] Hydrochloride 10 MG TAB, Dosing [facility] Oral Tablet Weight 135, [Percocet 10/325] kg, Q4H, PRN Pain Score 7-10, Start date: 05/25/16 10:45:00 SALES PROJECT ENGINEER, Duration: 30 day, Stop date: 06/24/16 10:44:00 CDT Maalox Advanced 30 mL, Route: No Longer Regular Strength PO, Drug Form: Active 2016 [facility] SUSP SUSP, Dosing [facility] Weight 135, kg, QID, PRN Heartburn, Start date: 05/25/16 10:45:00 SALES PROJECT ENGINEER, Duration: 30 day, Stop date: 06/24/16 10:44:00 CDT Ambien Notes: (Same No Longer As: Ambien) Active 2016 [facility] D5NS 1,000 mL 1,000 mL, No Longer Rate: [address] [place] [address] ml/hr, Infuse [facility] over: 10 hr, Route: IV, Dosing Weight 135 kg, Total Volume: 1,000, Start date: 05/25/16 10:45:00 SALES PROJECT ENGINEER, Duration: 30 day, Stop date: 06/24/16 10:44:00 CDT acetaminophen Route: IV, Inactive 05/25/ MH (ANES) Drug form: 2016 [facility] INJ, ONCE, City Stop date: 05/25/16 10:40:00 SALES PROJECT ENGINEER dexamethasone Route: IV, Inactive 05/25/ MH (ANES) Drug form: 2016 [facility] INJ, ONCE, City Stop date: 05/25/16 10:34:00 SALES PROJECT ENGINEER morphine Sulfate Route: IV, Inactive MH (ANES) Drug form: 2016 [facility] SOLN, ONCE, City Stop date: 05/25/16 10:29:00 SALES PROJECT ENGINEER tranexamic acid Route: IV, Inactive 05/25/ MH (ANES) Drug form: 2016 [facility] INJ, ONCE, City Stop date: 05/25/16 9:49:00 SALES PROJECT ENGINEER phenylephrine Route: IV, Inactive MH (ANES) Drug form: 2016 [facility] INJ, ONCE, City Stop date: 05/25/16 9:39:00 SALES PROJECT ENGINEER ePHEDrine (ANES) Route: IV, Inactive Drug form: 2016 [facility] INJ, ONCE, City Stop date: 05/25/16 9:39:00 SALES PROJECT ENGINEER bupivacaine (ANES) Route: IV, Inactive 0308/ M H Drug Form: 2016 [facility] INJ, ONCE, City Stop date: 05/25/16 9:34:00 SALES PROJECT ENGINEER morphine Sulfate Route: IV, Inactive (ANES) Drug form: 2016 [facility] SOLN, ONCE, City Stop date: 05/25/16 9:34:00 SALES PROJECT ENGINEER Ondansetron Notes: (Same No Longer as: Zofran) Active 2016 [facility] MEDICATION City WASTE Product Size: 4 mg Product Wasted: ___ mg Flumazenil Notes: (Same No Longer as: Romazicon) Active 2016 [facility] Hydromorphone Notes: Same as No Longer 08/ M H Dilaudid Active 2016 [facility] Naloxone Notes: Same as No Longer Narcan Active 2016 [facility] midazolam (ANES) Route: IV, Inactive MH Drug form: 2016 [facility] SOLN, ONCE, City Stop date: 05/25/16 9:19:00 SALES PROJECT ENGINEER ondansetron (ANES) Route: IV, Inactive 0308/ M H Drug form: 2016 [facility] INJ, ONCE, City Stop date: 05/25/16 9:19:00 SALES PROJECT ENGINEER fentaNYL (ANES) Route: IV, Inactive Drug form: 2016 [facility] INJ, ONCE, Stop date: 05/25/16 9:19:00 SALES PROJECT ENGINEER Naloxone Notes: Same as No Longer Narcan Active 2016 [facility] propofol (ANES) Route: IV, Inactive (ANES) Drug form: 2016 [facility] INJ, [place] date: 05/25/16 9:05:00 SALES PROJECT ENGINEER, Stop date: 05/25/16 10:05:00 SALES PROJECT ENGINEER vancomycin (ANES) Route: IV, Inactive (ANES) Drug form: 2016 [facility] date: 05/25/16 8:43:00 SALES PROJECT ENGINEER, Stop date: 05/25/16 9:43:00 SALES PROJECT ENGINEER LR 1000 mL INJ Route: IV, Inactive (ANES) Total Volume: 2016 [facility] 1,000, [facility] date: 05/25/16 8:37:00 SALES PROJECT ENGINEER, Stop date: 05/25/16 9:37:00 SALES PROJECT ENGINEER 72 HR Scopolamine 1 patch, Inactive 0.0139 MG/HR Route: [facility], 2016 [facility] Transdermal Patch Drug Form: Cit y ERFILM, Dosing Weight 135, kg, PRE OP, Start date: 05/25/16 8:00:00 SALES PROJECT ENGINEER, Duration: 30 day, Stop date: 06/24/16 8:59:00 CDT Cyklokapron + Notes: (Same Inactive sodium chloride As: 2016 [facility] 0.9% INJ 100 mL Cyklokapron) Cit y Ofirmev Notes: Infuse Inactive over 15 2016 [facility] minutes Do City not exceed 4gm/day of acetaminophen MEDICATION WASTE Product Size: 1000 mg Product Wasted: ___ mg Reglan Notes: (Same Inactive as: Reglan) 2016 [facility] Take 30 min [facility] before meals Cleocin Phosphate + Notes: (Same No Longer 05/25 sodium chloride As: Cleocin) Active [address] [facility] orial 0.9% INJ 50 mL [facility] famotidine Notes: (Same Inactive as: Pepcid) 2016 [facility] vancomycin + sodium 2001 mg: Inactive 05/25/ M H chloride 0.9% 500 infuse over 2017 [facility] mL INJ (for IV set) 2.5 hours Ci ty 500 mL MEDICATION WASTE Product Size: 1000 mg Product Wasted: ___ mg 200 ACTUAT 2 puff, Active Albuterol 0.09 INHALATION, 2017 [facility] MG/ACTUAT Metered QID, PRN as Ci ty Dose Inhaler needed for [ProAir HFA] wheezing, 0 Refill(s) Hydrochlorothiazide 25 mg = 1 tab, Active 05/17 25 MG Oral Tablet PO, Daily, PRN 2017 [facility] Hypertension, [facility] 0 Refill(s) lisinopril 10 mg 10 mg = 1 tab, Active 05/17[facility] oral tablet PO, Bedtime, 0 2017 [facility] Refill(s) [facility] DULoxetine 60 mg 60 mg = 1 cap, Active oral delayed PO, Bedtime, 0 2017 [facility] release capsule Refill(s) [facility] montelukast 10 mg 10 mg = 1 tab, Active oral tablet PO, Bedtime, 0 2017 [facility] Refill(s) [facility] cyclobenzaprine 10 10 mg = 1 tab, Active mg oral tablet PO, BID, 0 2017 [facility] Refill(s) [facility] tramadol 50 mg = 1 tab, Active hydrochloride 50 MG PO, Q4H, PRN 2016 [facility] Oral Tablet Pain Score [facility] 6-10, 0 Refill(s) omeprazole 40 mg 40 mg = 1 cap, Active oral delayed PO, Bedtime, 0 2017 [facility] release capsule Refill(s) [facility] indomethacin 75 mg 75 mg = 1 cap, No Longer 04/21 oral capsule, PO, Bedtime, 0 Active 2017 [facility] extended release Refill(s) [facility] Allergies, Adverse Reactions, Alerts Substance Category Reaction Severity Reaction Status Date Comments S ource type Reported Bactrim Assertion Drug Active [facility] codeine Assertion Drug Active [facility] Latex Assertion Drug Active [facility] Lortab Assertion Drug Active [facility] morphine Assertion Drug Active [facility] penicillins Assertion Drug Active [facility] Tape Assertion Drug Active allergy [facility] Immunizations No Data Provided for This Section Results Order Name Results Value Reference Date Interpretation Comments Judit rce Range HEMATOLOGY Monocytes # 1.2 0.0 - 0.8 03/ [facility] HEMATOLOGY Segs-Bands # 8.5 1.5 - 8.1 05/27 [facility] HEMATOLOGY Basophils # 0.1 0.0 - 0.2 / [facility] HEMATOLOGY Eosinophils 0.9 0.0 - 0.5 03/10 MH # /2016 [facility] HEMATOLOGY Lymphocytes 2.1 1.0 - 5.5 03/10 MH # /2016 [facility] HEMATOLOGY Monocytes 9.5 2.0 - 12.0 03/ [facility] HEMATOLOGY Segs 66.5 45.0 - 05/27 MH 75.0 /2016 [facility] HEMATOLOGY Eosinophils 6.6 0.0 - 4.0 05/27 [facility] HEMATOLOGY Lymphocytes 16.6 20.0 - 05/27 MH 40.0 [facility] HEMATOLOGY Basophils 0.8 0.0 - 1.0 05/27 [facility] HEMATOLOGY RBC 3.75 4.20 - 05/27 MH 5.40 /2016 [facility] HEMATOLOGY WBC 12.8 3.7 - 10.4 05/27 [facility] HEMATOLOGY Hgb 10.0 12.0 - 05/27 16.0 [facility] HEMATOLOGY Hct 31.0 36.0 - 05/27 48.0 /2016 [facility] HEMATOLOGY MPV 8.0 7.4 - 10.4 05/27 [facility] HEMATOLOGY MCHC 32.4 32.0 - 05/27 36.0 [facility] HEMATOLOGY MCH 26.7 27.0 - 05/27 31.0 /2016 [facility] HEMATOLOGY Platelet 311 133 - 450 05/27 [facility] HEMATOLOGY RDW 15.1 11.5 - 05/27 14.5 [facility] HEMATOLOGY MCV 82.5 80.0 - 05/27 98.0 /2016 [facility] ELECTROLYTES Potassium 4.3 3.5 - 5.1 05/26 MH Lvl /2016 [facility] ELECTROLYTES Sodium Lvl 143 135 - 145 05/26 [facility] ELECTROLYTES Calcium Lvl 8.2 8.5 - 10.5 05/26 [facility] ELECTROLYTES Chloride Lvl 111 95 - 109 05/26 [facility] ELECTROLYTES eGFR 105 05/26 [facility] Comment: The [facility] eGFR is City calculated using the CKD-EPI formula. In most young, healthy individuals the eGFR will be >90 mL/min/1.73m2 . The eGFR declines with age. An eGFR of 60-89 may be normal in some populations, particularly the elderly, for whom the CKD-EPI formula has not been extensively validated. Use of the eGFR is not recommended in the following populations:< br/>
Francesca viduals with unstable creatinine concentration s, including patients and those with serious co-morbid conditions.<b r/>
Patie nts with extremes in muscle mass or diet.

The data above are obtained from the National Kidney Disease Education Program (NKDEP) which additionally recommends that when the eGFR is used in patients with extremes of body mass index for purposes of drug dosing, the eGFR should be multiplied by the estimated BMI. ELECTROLYTES AGAP 13.3 10.0 - 05/26 MH 20.0 [facility] ELECTROLYTES BUN 9 7 - 22 05/26 [facility] ELECTROLYTES Creatinine 0.70 0.50 - 05/26 Lvl 1.40 /2016 [facility] ELECTROLYTES CO2 23 24 - 32 05/26 [facility] ELECTROLYTES Glucose Lvl 127 70 - 99 05/26 [facility] HEMATOLOGY Segs 79.5 45.0 - 03 MH 75.0 /2017 [facility] HEMATOLOGY Lymphocytes 12.3 20.0 - 05/26 MH 40.0 /2017 [facility] HEMATOLOGY Monocytes 7.2 2.0 - 12.0 05/26 [facility] HEMATOLOGY Segs-Bands # 13.0 1.5 - 8.1 05/26 [facility] HEMATOLOGY Eosinophils 0.8 0.0 - 4.0 05/26 [facility] HEMATOLOGY Basophils 0.2 0.0 - 1.0 05/26 [facility] HEMATOLOGY Lymphocytes 2.0 1.0 - 5.5 / MH # [facility] HEMATOLOGY Monocytes # 1.2 0.0 - 0.8 05/26 [facility] HEMATOLOGY Eosinophils 0.1 0.0 - 0.5 / MH # [facility] HEMATOLOGY WBC 16.4 3.7 - 10.4 05/26 [facility] HEMATOLOGY Hgb 9.6 12.0 - 05/26 MH 16.0 /2016 [facility] HEMATOLOGY Hct 30.1 36.0 - 05/26 MH 48.0 /2016 [facility] HEMATOLOGY RBC 3.57 4.20 - 05/26 MH 5.40 /2016 [facility] HEMATOLOGY MPV 8.7 7.4 - 10.4 05/26 [facility] HEMATOLOGY MCV 84.4 80.0 - 05/26 MH 98.0 /2016 [facility] HEMATOLOGY MCH 26.9 27.0 - 05/26 MH 31.0 /2016 [facility] HEMATOLOGY MCHC 31.9 32.0 - 05/26 MH 36.0 /2016 [facility] HEMATOLOGY RDW 15.1 11.5 - 05/26 MH 14.5 [facility] HEMATOLOGY Platelet 320 133 - 450 05/26 [facility] CHEM PANEL Creatinine 0.98 0.50 - 05/25 Lvl 1.40 [facility] CHEM PANEL eGFR 70 05/25 Comment: The [facility] eGFR is City calculated using the CKD-EPI formula. In most young, healthy individuals the eGFR will be >90 mL/min/1.73m2 . The eGFR declines with age. An eGFR of 60-89 may be normal in some populations, particularly the elderly, for whom the CKD-EPI formula has not been extensively validated. Use of the eGFR is not recommended in the following populations:< br/>
Francesca viduals with unstable creatinine concentration s, including patients and those with serious co-morbid conditions.<b r/>
Patie nts with extremes in muscle mass or diet.

The data above are obtained from the National Kidney Disease Education Program (NKDEP) which additionally recommends that when the eGFR is used in patients with extremes of body mass index for purposes of drug dosing, the eGFR should be multiplied by the estimated BMI. HEMATOLOGY Sed Rate 15 0 - 20 05/25 [facility] BACTERIAL - MRSA by PCR Negative 05/17 SEROLOGY (05/17/16 10:00 AM) [facility] CHEM PANEL Glucose Lvl 135 70 - 99 05/17 [facility] ELECTROLYTES Sodium Lvl 138 135 - 145 05/17 [facility] ELECTROLYTES Potassium 3.5 3.5 - 5.1 05/17 Lvl /2016 [facility] HEMATOLOGY Hct 35.6 36.0 - 05/17 48.0 [facility] HEMATOLOGY Hgb 11.6 12.0 - 05/17 16.0 [facility] Pathology Reports No Data Provided for This Section Diagnostic Reports Report Value Date Source Knee 1-2 Views CLINICAL HISTORY: Pain 06/06/2016 [facility] unilateral DX AGE: 45 years GENDER: Female TECHNIQUE: Left knee radiographs, 2 views. COMPARISON: Left knee radiographs 03/25/2016 FINDINGS: Postoperative changes from l eft total knee arthroplasty are noted. There is no evidence of fracture or malalignment. Expected soft tissue swellin g is seen about the knee. Surgical cha are seen in the anterior midline soft tissues. An orthopedic bracket is seen on the anterior ti abel. IMPRESSION: Postoperative changes from l eft total knee arthroplasty without evidence of complication. Knee 3 views DX EXAMINATION: Left knee series 03/25/2016 [facility] HISTORY: Left knee pain; left knee arthritis FINDINGS: 3 views of the left knee are performed and compared to 05/25/2012. There is severe lateral and mild to moderate patellofemoral compartment, bicompartmental knee osteoarthritis characterized by asymmetric joint space narrowing, subchondral sclerosis, and osteophytosis i ncluding [id number] articu lation within the lateral compartment. There is genu valgus alignment. There is a small knee effusion. There is a metallic orthopedic bracket redemonstrated along the anterior proximal tibia. There is no acute fracture. IMPRESSION: 1. Severe lateral and mild t o moderate patellofemoral compartment, bicompartmental left knee osteoarthritis with left genu valgus alignment and a small left knee effusion. Knee 4+ views EXAM: Knee 4+ views unilateral 02/03/2014 M H [facility] unilateral DX HISTORY: 719.46 Pain in Joint Involving Lower Leg COMPARISON: None Four views of the right knee. Alignment is normal. No frac ture is seen. There is no joint effusion. There is mild tibiofemoral joint space narrowing with trace marginal osteophyte formation at the medial tibiofemoral compartment. No osteochondral defect is appreciated. IMPRESSION: Mild degenerative change. Consultation Notes No Data Provided for This Section Discharge Summaries No Data Provided for This Section History and Physicals No Data Provided for This Section Vital Signs Vital Sign Value Date Comments Source Respitory Rate 18 05/27/2016 [facility] Systolic (mm Hg) 137 05/27/2016 [facility] City Diastolic (mm Hg) 79 05/27/2016 [facility] Heart [facility] 112 05/27[facility] Resp[facility] 20 05/27/2016 [facility] Systolic (mm Hg) 144 05/27/2016 [facility] City Diastolic (mm Hg) 81 05/27/2016 [facility] Heart Rate 115 05/27/2016 [facility] Systolic (mm Hg) 128 05/27/2016 [facility] City Diastolic (mm Hg) 74 05/27/2016 [facility] Heart Rate 100 05/27/2016 [facility] Respitory Rate 16 05/27/2016 [facility] Temperature Oral (F) 98 F 05/27/2016 [facility] Temperature Oral (F) 98 F 05/27/2016 [facility] Temperature Oral (F) 97.6 F 05/27/2016 [facility] Height 30.48 cm 05/26/2016 [facility] Weight 135.455 05/25/2016 [facility] BMI Calculated 44.1 05/25/2016 [facility] Height 175.26 cm 05/25/2016 [facility] BMI Calculated 45.25 05/17/2016 [facility] Height 172.72 cm 05/17/2016 [facility] Weight 135 05/17/2016 [facility] Encounters Location Location Encounter Encounter Reason Attending ADM DC Stat us Source Details Type Number For Provider Date Date Visit Outpatient [id number] LEFT [facility] 05/25 Active [facility] Outpatient [id number] [facility] 02/03 02/04 [facility] /2013 [facility] Outpatient [id number] [facility] 03/25 03/26 [facility] /2016 [facility] Inpatient [id number] Moses 05/25 05/27 [facility] Outpatient [id number] Moses 06/06 06/07 [facility] Procedures Procedure Code Date Perfomer Comments Source Procedure on [id number] ulnar tendon [facility]oria [facility] wrist tear [facility] joint<sup>1</sup> [id number] ligament of knee joint Repair of [id number] [facility] patellar tendon [facility] Assessment and Plan No Data Provided for This Section Plan of Care No Data Provided for This Section Social History Social History Date Source Social History TypeResponse 05/17/2016 [facility] Alcohol Current Smoking Status Never smoker; Exposure to Tobacco Smoke None; Cigarette Smoking Last 365 Days No; Reg Smoking Cessation Counseling No Family History No Data Provided for This Section Advance Directives No Data Provided for This Section Functional Status No Data Provided for This Section
== END 2019-12-20 18:56 | disposition home or self-care (01) ==
LOC: ER 16:54
DX: R21 Rash and other nonspecific skin eruption (principal); R10.9 Unspecified abdominal pain; R11.0 Nausea; I10 Essential (primary) hypertension; Z88.0 Allergy status to penicillin; Z88.1 Allergy status to other antibiotic agents; Z88.5 Allergy status to narcotic agent; Z88.8 Allergy status to other drugs, medicaments and biological substances; Z91.018 Allergy to other foods
CPT/HCPCS: 96374; 96375; 99283; J1200; J2930

== ENCOUNTER 2020-12-31 06:14 | Emergency (ER) | payer SELFPAY ==
--- NOTE | 2020-12-31 07:22 | RAD REPORT ---
EXAM DESCRIPTION: US - Extremity Venous Uni Ltd - 12/31/2020 6:58 am CLINICAL HISTORY: Pain COMPARISON: None. TECHNIQUE: Real-time sonographic evaluation of the left lower extremity deep venous system was perfo rmed. FINDINGS: Normal compressibility, flow augmentation, phasic flow and spontaneous flow is identified in the left lower extremity deep venous system. No intraluminal filling defects seen. IMPRESSION: No DVT in the left lower extremity.
--- NOTE | 2020-12-31 07:28 | EDPHYS ---
Physician Documentation [facility] Name: Leyla Dutton Age: 50 yrs Sex: Female : 1970 Arrival Date: 12/31/2020 Time: 06:18 Bed 8 Private MD: ED Physician Antonio Arriola HPI: 12/31 06:43 This 50 yrs old Female presents to ER via Wheelchair with complaints of kb Swollen Knee. 06:43 The patient presents with pain, swelling. The complaints affect the left leg. Context: kb The problem was sustained at home, resulted from an unknown cause, the patient can fully bear weight, the patient is able to ambulate. Onset: The symptoms/episode began/occurred this morning. Modifying factors: The symptoms are alleviated by nothing. the symptoms are aggravated by nothing. Associated signs and symptoms: Pertinent positives: swelling, Pertinent negatives calf tenderness, fever, nausea, numbness, rash, tingling, vomiting, warmth, weakness. Treatment prior to arrival includes: no previous treatment. Severity of symptoms: At their worst the symptoms were mild, moderate, in the emergency department the symptoms are unchanged. The patient has not experienced similar symptoms in the past. The patient has not recently seen a physician. Pt states she has been sitting a lot lately and this morning she woke up with swelling and pain to left leg. Reports tenderness to proximal inner thigh. 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 Historical: - Allergies: 06:27 Bactrim (rash); df1 06:27 Codeine (High Blood Pressure); df1 06:27 Erythromycin (rash); df1 06:27 Keflex (rash); df1 06:27 Levaquin; df1 06:27 Lortab (rash); df1 06:27 Morphine (High Blood Pressure); df1 06:27 PENICILLINS (Hives); df1 - Home Meds: 06:27 Albuterol Inhl [Active]; Cymbalta 60 mg oral cpDR 1 cap once daily [Active]; omeprazole df1 40 mg Oral cpDR 1 cap once daily [Active]; lisinopril 10 mg Oral tab 1 tab once daily [Active]; acyclovir 400 mg Oral tab 1 tab 2 times per day [Active]; - PMHx: 06:27 Anxiety; Arthritis; Asthma; Depression; Hypertension; Herpes simplex; df1 - PSHx: 06:27 total knee left; df1 - Immunization history:: Adult Immunizations up to date, Client reports receiving the 2nd dose of the Covid vaccine. - Social history:: Smoking status: Patient denies any tobacco usage or history of. ROS: 06:42 Constitutional: Negative for fever, chills, and weight loss. kb 06:42 MS/extremity: Positive for pain, of the left leg. 06:42 All other systems are negative. Exam: 06:42 Constitutional: This is a well developed, well nourished patient who is awake, alert, kb and in no acute distress. Head/Face: Normocephalic, atraumatic. ENT: Moist Mucous membranes Respiratory: Respirations even and unlabored. No increased work of breathing, no retractions or nasal flaring. Skin: Warm, dry with normal turgor. Normal color. Neuro: Awake and alert, GCS 15, oriented to person, place, time, and situation. Moves all extremities. Normal gait. Psych: Awake, alert, with orientation to person, place and time. Behavior, mood, and affect are within normal limits. 06:42 Musculoskeletal/extremity: Extremities: grossly normal except: noted in the left leg: pain, swelling, ROM: limited active range of motion due to pain, Circulation is intact in all extremities. Sensation intact. Weight bearing: able to fully bear weight. Vital Signs: 06:24 BP 133 / 80; Pulse 93; Resp 18; Temp 97.9(O); Pulse Ox 99% on R/A; Weight 147.42 kg; df1 Height 5 ft. 8 in. (172.72 cm); Pain 7/10; 06:24 Body Mass Index 49.42 (147.42 kg, 172.72 cm) df1 MDM: 06:28 Patient medically screened. kb 06:30 Data reviewed: vital signs, nurses notes. Data interpreted: Pulse oximetry: on room air kb is 99 %. Interpretation: normal. 07:26 Counseling: I had a detailed discussion with the patient and/or guardian regarding: the kb historical points, exam findings, and any diagnostic results supporting the discharge/admit diagnosis, radiology results, the need for outpatient follow up, a family practitioner, to return to the emergency department if symptoms worsen or persist or if there are any questions or concerns that arise at home. 12/31 06:34 Order name: US Extremity Venous Unilateral Ltd; Complete Time: 07:24 kb Administered Medications: No medications were administered Disposition: 19:00 Co-signature as Attending Physician, Antonio Arriola MD I agree with the assessment and rn plan of care. Attestation: The patient's history, exam findings, diagnostics, and a summary of any interventions or procedures was reviewed in detail with An ALBERT. Disposition Summary: 12/31/20 07:27 Discharge Ordered Location: Home kb Condition: Stable kb Diagnosis - Edema, unspecified - left leg kb Followup: kb - With: Emergency Department - When: As needed - Reason: Worsening of condition Followup: kb - With: Private Physician - When: 2 - 3 days - Reason: Recheck today's complaints, Continuance of care, Re-evaluation by your physician Discharge Instructions: - Discharge Summary Sheet kb - Edema, [id number] kb Forms: - Medication Reconciliation Form kb - Thank You Letter kb - Antibiotic Education kb - School release form kb - Prescription Opioid Use kb Signatures: Dispatcher [employer] EDMS An Montoya FNP-C FNP-Antonio Tang MD MD rn Ivania Alcazar df1
--- NOTE | 2020-12-31 07:28 | ER ---
Nurse's Notes [facility] Name: Leyla Dutton Age: 50 yrs Sex: Female : 1970 Arrival Date: 12/31/2020 Time: 06:18 Bed 8 Private MD: Diagnosis: Edema, unspecified-left leg Presentation: 12/31 06:24 Chief complaint: Patient states: LLE swelling starting this morning. No fall/trauma. df1 Coronavirus screen: Vaccine status: Patient reports receiving the 2nd dose of the covid vaccine. The client reports previous COVID testing was negative. Date of collection: December 18, 2020. Ebola Screen: Patient negative for fever greater than or equal to 101.5 degrees Fahrenheit, and additional compatible Ebola Virus Disease symptoms Patient denies exposure to infectious person. Patient denies travel to an Ebola-affected area in the 21 days before illness onset. Initial Sepsis Screen: Does the patient meet any 2 criteria? No. Patient's initial sepsis screen is negative. Does the patient have a suspected source of infection? No. Patient's initial sepsis screen is negative. Risk Assessment: Do you want to hurt yourself or someone else? Patient reports no desire to harm self or others. Onset of symptoms was December 31, 2020 at 06:00. 06:24 Method Of Arrival: Wheelchair df1 06:24 Acuity: IRINA 3 df1 Triage Assessment: 07:02 General: Appears in no apparent distress. Behavior is calm, cooperative. Neuro: No cw2 deficits noted. Cardiovascular: No deficits noted. Respiratory: No deficits noted. GI: No deficits noted. 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 Historical: - Allergies: 06:27 Bactrim (rash); df1 06:27 Codeine (High Blood Pressure); df1 06:27 Erythromycin (rash); df1 06:27 Keflex (rash); df1 06:27 Levaquin; df1 06:27 Lortab (rash); df1 06:27 Morphine (High Blood Pressure); df1 06:27 PENICILLINS (Hives); df1 - Home Meds: 06:27 Albuterol Inhl [Active]; Cymbalta 60 mg oral cpDR 1 cap once daily [Active]; omeprazole df1 40 mg Oral cpDR 1 cap once daily [Active]; lisinopril 10 mg Oral tab 1 tab once daily [Active]; acyclovir 400 mg Oral tab 1 tab 2 times per day [Active]; - PMHx: 06:27 Anxiety; Arthritis; Asthma; Depression; Hypertension; Herpes simplex; df1 - PSHx: 06:27 total knee left; df1 - Immunization history:: Adult Immunizations up to date, Client reports receiving the 2nd dose of the Covid vaccine. - Social history:: Smoking status: Patient denies any tobacco usage or history of. Screenin:03 Abuse screen: Denies threats or abuse. Nutritional screening: No deficits noted. cw2 Tuberculosis screening: No symptoms or risk factors identified. Fall Risk None identified. No fall in past 12 months (0 pts). Assessment: 07:02 General: Appears in no apparent distress. Behavior is calm, cooperative. Neuro: No cw2 deficits noted. Cardiovascular: No deficits noted. Respiratory: No deficits noted. GI: No deficits noted. : No deficits noted. 07:41 Reassessment: Patient appears in no apparent distress at this time. No changes from tw2 previously documented assessment. Patient and/or family updated on plan of care and expected duration. Pain level reassessed. Patient is alert, oriented x 3, equal unlabored respirations, skin warm/dry/pink. Vital Signs: 06:24 BP 133 / 80; Pulse 93; Resp 18; Temp 97.9(O); Pulse Ox 99% on R/A; Weight 147.42 kg; df1 Height 5 ft. 8 in. (172.72 cm); Pain 7/10; 06:24 Body Mass Index 49.42 (147.42 kg, 172.72 cm) df1 ED Course: 06:18 Patient arrived in ED. wm 06:27 Triage completed. df1 06:28 An Montoya FNP-C is PHCP. kb 06:28 Antonio Arriola MD is Attending Physician. kb 06:58 US Extremity Venous Unilateral Ltd In Process Unspecified. EDMS 07:00 Bed in low position. Call light in reach. tw2 07:02 Seven Gomez, RN is Primary Nurse. cw2 07:02 Arm band placed on left wrist. cw2 07:03 No provider procedures requiring assistance completed. cw2 07:26 Primary Nurse role handed off by Seven Gomez, RN tw2 07:26 Iram Ventura, RN is Primary Nurse. tw2 07:42 Patient did not have IV access during this emergency room visit. tw2 Administered Medications: No medications were administered Outcome: 07:27 Discharge ordered by . west 07:41 Discharged to home ambulatory. tw2 07:41 Condition: stable 07:41 Discharge instructions given to patient, Instructed on discharge instructions, follow up and referral plans. Demonstrated understanding of instructions, follow-up care. 07:42 Patient left the ED. tw2 Signatures: Dispatcher [employer] EDMS An Montoya, FIRE CONTROL TECHNICIAN G-C FIRE CONTROL TECHNICIAN G-Ckb Iram Ventura RN RN tw2 Kelly Lim Ivania Alcazar df1 Seven Gomez, BHARATI RN cw2 Corrections: (The following items were deleted from the chart) 06:30 06:24 Pulse 93bpm; Resp 18bpm; Pulse Ox 99% RA; Temp 97.9F Oral; 147.42 kg; Height 5 df1 ft. 8 in.; BMI: 49.4; Pain 7/10; df1
[2020-12-31 07:53] VITALS: BP 133/80; TEMP 97.9; O2SAT 99
== END 2020-12-31 07:42 | disposition home or self-care (01) ==
LOC: ER 06:14
DX: R60.0 Localized edema (principal); I10 Essential (primary) hypertension; Z96.652 Presence of left artificial knee joint; Z88.0 Allergy status to penicillin; Z88.1 Allergy status to other antibiotic agents; Z88.3 Allergy status to other anti-infective agents; Z88.5 Allergy status to narcotic agent
CPT/HCPCS: 93971; 99283